=== PATIENT | female | born 1950 | race Caucasian/White ===

== ENCOUNTER 2023-08-30 19:33 | Observation (INO) ==
[2023-08-30 20:23] LABS: Basophils # (auto) 0.08 K/uL (0.00-0.20); Basophils % (auto) 0.9 %; Eosinophils # (auto) 0.25 K/uL (0.00-0.50); Eosinophils % (auto) 2.7 %; Hematocrit (blood only) 42.6 % (37.0-47.0); Hemoglobin 14.6 g/dl (12.0-16.0); Immature Granulocytes # (auto) 0.02 K/uL (0.01-0.20); Immature Granulocytes % (auto) 0.2 %; Lymphocytes # (auto) 3.99 K/uL (1.20-3.40); Lymphocytes % (auto) 42.9 %; Mean Corpuscular Hemoglobin 31.7 pg (25.0-34.0); Mean Corpuscular Hgb Conc 34.3 g/dL (32.0-36.0); Mean Corpuscular Volume 92.4 fL (80.0-100.0); Mean Platelet Volume 10.4 fL (9.4-12.4); Monocytes # (auto) 1.13 K/uL (0.11-0.59); Monocytes % (auto) 12.2 %; Neutrophils # (auto) 3.82 K/uL (1.40-6.50); Neutrophils % (auto) 41.1 %; Platelet Count 380 K/uL (130-400); RDW Coefficient of Variation 13.8 % (11.5-14.5); RDW Standard Deviation 47.2 fL (36.4-46.3); Red Blood Count 4.61 M/uL (4.20-5.40); White Blood Count 9.29 K/ul (4.8-10.8)
[2023-08-30 20:40] LABS: Albumin Globulin Ratio 1.4 (0.9-2); Albumin Level 4.4 gm/dl (3.4-5.0); BUN Creatinine Ratio 36.4 (10-20); Bilirubin,Total 0.4 mg/dl (0.2-1.0); Est GFR (African American) 106.3 ml/min; Est GFR (Non-African American) 91.8 ml/min; Globulin 3.2 gm/dl (2.5-4.0); Potassium 4.2 mmol/L (3.5-5.1); Total Protein 7.6 gm/dl (6.0-8.3)
[2023-08-30] MEDS: OPTIRAY 320 125ml IV ONE (20:58)
--- NOTE | 2023-08-30 21:31 | CT Scan Report ---
Exam(s): CTA HEAD With Contrast IV Amt: 117 ml opti 320 EXAM: CT Angiography Head With Intravenous Contrast CLINICAL HISTORY: Changes in vision. TECHNIQUE: Axial computed tomographic angiography images of the head with intravenous contrast. CTDI is 22.84 mGy and DLP is 427.39 mGy-cm. Automated exposure control was utilized for the study. A dose lowering technique was utilized adhering to the principles of ALARA. MIP reconstructed images were created and reviewed. CONTRAST: Patient received 117 ml opti 320 of IV contrast COMPARISON: No relevant prior studies available. FINDINGS: Limitations: There is mild motion artifact, which mildly degrades image quality on multiple image slices. Right internal carotid artery: No acute findings. Intracranial segment is patent with no significant stenosis. No aneurysm. Right anterior cerebral artery: Unremarkable. No occlusion or significant stenosis. No aneurysm. Right middle cerebral artery: Unremarkable. No occlusion or significant stenosis. No aneurysm. Right posterior cerebral artery: Unremarkable. No occlusion or significant stenosis. No aneurysm. Right vertebral artery: Unremarkable as visualized. Left internal carotid artery: No acute findings. Intracranial segment is patent with no significant stenosis. No aneurysm. Left anterior cerebral artery: Unremarkable. No occlusion or significant stenosis. No aneurysm. Left middle cerebral artery: Unremarkable. No occlusion or significant stenosis. No aneurysm. Left posterior cerebral artery: Unremarkable. No occlusion or significant stenosis. No aneurysm. Left vertebral artery: Unremarkable as visualized. Basilar artery: Unremarkable. No occlusion or significant stenosis. No aneurysm. Brain: No abnormal parenchymal enhancement. IMPRESSION: Negative intracranial CTA examination. Communications: Call Doctor Stroke Electronically signed by: Oziel Rodriguez MD 08/30/23 21:30 PM
--- NOTE | 2023-08-30 21:36 | Emergency Department Note ---
Impression & Plan Ischemic cerebrovascular accident (CVA), Hemianopsia ED Provider Note NAME: DOUGLAS MADSEN AGE: 73 SEX: F : 1950 ARRIVES VIA: Walk-In INFORMANT: Patient, ED PROVIDER(S): Maldonado Antonio DO CHIEF COMPLAINT: strokelike symptoms HPI: the patient is a 73-year-old female who presented to the emergency department for an evaluation of viral-like symptoms. The patient started having symptoms over the weekend. She noticed loss of peripheral vision mostly in her right eye. She was seen recently at her eye doctors for cataract surgery. She did have drops placed in her eye. She noticed when she awoke on Wednesday morning which was the next day that she was having problems seeing out of the right eye. The patient denies having any headaches. She was seen by the eye doctor again today and her eye exam showed no reason for her loss of peripheral vision. It was felt that this could be related to a central process so she was sent to the emergency department for further evaluation. She has no history of atrial fibrillation. She has no history of hypertension or carotid artery disease. ROS: See above HPI for pertinent positives & negatives. A total of 10 systems reviewed and were otherwise negative. PAST MEDICAL HISTORY: See Below PAST SURGICAL HISTORY: See Below FAMILY HISTORY: See Below SOCIAL HISTORY: See Below HOME MEDICATIONS: See Below ALLERGIES: See Below VITALS: See Below PHYSICAL EXAMINATION: GENERAL: Patient is awake alert in no acute distress patient is resting comfortably and showing no signs of anxiety EYES: The conjunctivae are clear. The pupils are round and reactive. EARS, NOSE, MOUTH AND THROAT: The nose is without any evidence of any deformity. NECK: The neck is nontender and supple. RESPIRATORY: Normal respiratory effort is noted there is no evidence of wheezing rhonchi or rales CARDIOVASCULAR: Regular rate and rhythm noted there no murmurs rubs or gallops normal S1 normal S2. GASTROINTESTINAL: The abdomen is soft. Abdomen is nontender. MUSCULOSKELETAL/EXTREMITIES: There is no evidence of gross deformity full range of motion is noted in the hips and shoulders. SKIN: There is no obvious evidence of any rash. There are no petechiae, pallor or cyanosis noted. NEUROLOGIC: Patient is awake alert and oriented x3 strength is symmetric patellar reflexes are 2+ bilaterally. Visual omy were evaluated to direct confrontation. The patient does appear to have some loss of peripheral vision in the right eye. MEDICAL DECISION MAKING: The patient is a 73-year-old female who presented to the emergency department for an evaluation of visual difficulty. The patient's exam appears to be consistent with a central cause for loss of vision especially given that she recently had a visit to her eye doctor and no peripheral cause can be found. The patient was not hypertensive. She was not in atrial fibrillation. She has no history of stroke in the past. She was treated with aspirin in the emergency department. CT appears to be consistent with a subacute left occipital lobe infarct. Given that this is cryptogenic in nature she may require further inpatient management. She may require echocardiogram and carotid Dopplers. She was agreeable to this plan. I [facility] Nursing notes reviewed. Prior medical records reviewed Vital Signs: reviewed and remarkable for no significant abnormalities Differential diagnosis: Conjunctivitis, trauma, corneal abrasion, hyphema, glaucoma, iritis, corneal ulcer, dendrite, CRAO, CRVO, vitreous detachment, retinal detachment, as well as other pathologies. ER treatment provided: See below Diagnostics interpreted by me: ECG: EKG was obtained in the emergency department. My interpretation is normal sinus rhythm at 73 bpm. There is no ectopy. There is no acute ST segment abnormalities noted. No previous tracing was available. Cardiac Monitoring: An order was placed for continuous cardiac monitoring. The monitor shows a rate of 71 bpm with sinus rhythm Laboratory studies: As stated above and show below. Imaging studies: See below. Radiographic imaging was reviewed by myself Consultation(s): I discussed this case with Dr. Weir who [facility]. Past Med/Surg History Problem List (Updated 08/30/23 @ 21:36 by Maldonado Antonio DO) Hemianopsia (Acute) Ischemic cerebrovascular accident (CVA) (Acute) Pancreatic lesion Multiple. S/p pancreatectomy for precancerous lesions in 2019. Managed by [facility] Hyperlipidemia Hypothyroidism Surgical History (Updated 01/15/22 @ 14:48 by JANNA Santana) History of pancreatectomy DISTAL PER PT IN 2019, INCLUDED THE SPLEEN PER PT. S/P gastric sleeve procedure SEP 2013 S/P partial hysterectomy 1993 S/P tonsillectomy and adenoidectomy S/P wisdom tooth extraction Family History (Updated 01/15/22 @ 14:53 by JANNA Santana) Aunt Colorectal cancer Uncle Colorectal cancer ALS (amyotrophic lateral sclerosis) Grandmother Myocardial infarction Father Pancreatic cancer Aunt Pancreatic cancer Grandfather (Paternal) Pancreatic cancer Grandmother (Paternal) Stroke Grandmother (Maternal) ALS (amyotrophic lateral sclerosis) Denies family history of Ovarian cancer Prostate cancer Breast cancer Hypertension Social History (Updated 01/15/22 @ 14:56 by JANNA Santana) Smoking Status: Never smoker Tobacco Type: Cigarettes Age Started Using Tobacco: 17; Age Quit Using Tobacco: 18; Cigarettes Per Day: A COUPLE A DAY; Second Hand Exposure: Yes; Do You Dip or Chew Tobacco: No; Hx Alcohol Use: Yes Alcohol type: wine Alcohol Intake Frequency: 2-3 x/Week Hx Substance Use: No Preferred Language: Croatian Communication Ability: Effective Visual Impairment: No Limitations Hearing Ability: Use of Hearing Aid marital status: Current Living Situation: Spouse current occupational status: retired Feels Safe at Home: Yes Childhood Exposure to Second-Hand Smoke: Yes Diet: other Diet Comment: JENA MCINTOSH Dental Care, Regularly: Yes Physical Activity Frequency: 3-4 Times per Week Seatbelt Use: always Sunscreen Use: Yes Allergies Allergies Allergy/AdvReac Type Severity Reaction Status Date / Time diazepam [From Valium] AdvReac Severe Shakiness Verified 07/15/22 10:34 adhesive tape AdvReac Unknown Rash Verified 07/15/22 10:34 pseudoephedrine AdvReac Unknown Insomnia Verified 07/15/22 10:34 [From Sudafed] Home Meds Home Medications Medication Instructions Recorded Confirmed Saccharomyces boulardii 250 mg 250 mg PO DAILY 01/15/22 07/15/22 capsule (Daily Probiotic (S. boulardii)) meloxicam 7.5 mg tablet 7.5 mg PO DAILY PRN 01/15/22 07/15/22 Previous Rx's Medication Instructions Recorded Synthroid 137 mcg tablet 137 mcg PO DAILY #90 tabs 06/19/22 (levothyroxine) Synthroid 150 mcg tablet 150 mcg PO DAILY #45 tabs 06/19/22 (levothyroxine) omeprazole 20 mg tablet,delayed 20 mg PO DAILY #30 tabs 07/15/22 release Results & Data (ED) Vital Signs Vital Signs - 24 hr 08/30/23 19:37 08/30/23 21:15 08/30/23 21:25 Temperature 36.6 C Temperature Source Temporal Artery Scan Pulse Rate 74 71 Pulse Rate [Apical] 72 Respiratory Rate 16 12 Respiratory Effort / Characteristics Non-Labored Non-Labored Spontaneous Respiratory Depth Normal Normal Respiratory Pattern Regular Regular Blood Pressure 159/95 H Blood Pressure [Right Arm] 138/80 Blood Pressure Mean 116 Blood Pressure Mean [Right Arm] 99 Pulse Oximetry 98 97 Oxygen Delivery Method Room Air Room Air Sepsis Recent Fever Within 48 Hours No Sepsis New/Unexplained Change in Mental Status N/A Sepsis Action Taken by Nursing No Action Required Home Medications Current Medication List: was personally reviewed by me Laboratory Data Attestation: I reviewed the patient's lab results. 08/30/23 19:47 08/30/23 19:47 Lab Results 08/30/23 Range/Units 19:47 WBC 9.29 (4.8-10.8) K/ul RBC 4.61 (4.20-5.40) M/uL Hgb 14.6 (12.0-16.0) g/dl Hct 42.6 (37.0-47.0) % MCV 92.4 (80.0-100.0) fL MCH 31.7 (25.0-34.0) pg MCHC 34.3 (32.0-36.0) g/dL RDW Std Deviation 47.2 H (36.4-46.3) fL RDW Coeff of Sheila 13.8 (11.5-14.5) % Plt Count 380 (130-400) K/uL MPV 10.4 (9.4-12.4) fL Immature Gran % (Auto) 0.2 % Neut % (Auto) 41.1 % Lymph % (Auto) 42.9 % [place] % (Auto) 12.2 % Eos % (Auto) 2.7 % Baso % (Auto) 0.9 % Neut # (Auto) 3.82 (1.40-6.50) K/uL Lymph # (Auto) 3.99 H (1.20-3.40) K/uL [place] # (Auto) 1.13 H (0.11-0.59) K/uL Eos # (Auto) 0.25 (0.00-0.50) K/uL Baso # (Auto) 0.08 (0.00-0.20) K/uL Immature Gran # (Auto) 0.02 (0.01-0.20) K/uL Sodium 140 (136-145) mmol/L Potassium 4.2 (3.5-5.1) mmol/L Chloride 106 (98-107) mmol/L Carbon Dioxide 28 (21-32) mmol/L Anion Gap 6 (3-11) BUN 20 (6-23) mg/dl Creatinine 0.55 L (0.6-1.2) mg/dl Est Cr Clr Drug Dosing 90.0 ml/min Est GFR ( Amer) 106.3 ml/min Est GFR (Non-Af Amer) 91.8 ml/min BUN/Creatinine Ratio 36.4 H (10-20) Glucose 134 H (70-99(Fasting)) mg/dl Calcium 10.0 (8.6-10.3) mg/dl Total Bilirubin 0.4 (0.2-1.0) mg/dl AST 25 (13-39) U/L ALT 27 (7-52) U/L Alkaline Phosphatase 86 (34-104) U/L Total Protein 7.6 (6.0-8.3) gm/dl Albumin 4.4 (3.4-5.0) gm/dl Globulin 3.2 (2.5-4.0) gm/dl Albumin/Globulin Ratio 1.4 (0.9-2) Administered Medications Discontinued Medications Ioversol (Optiray 320 125ml) 117 ml IV ONCE ONE Stop: 08/30/23 20:59 Last Admin: 08/30/23 20:58 Dose: 117 ml Documented By: JOÃO Imaging Data Attestation: I personally reviewed and interpreted this imaging study as follows: My Impression: CT of the brain was obtained in the emergency department. My interpretation is subacute infarct in the left occipital lobe, there is no acute bleeding, final report below. Radiologist's Impression: Head CT 08/30/23 20:42 CR Exam(s): CT HEAD Without Contrast EXAM: CT Head Without Intravenous Contrast CLINICAL HISTORY: Changes in vision. TECHNIQUE: Axial computed tomography images of the head/brain without intravenous contrast. CTDI is 53.29 mGy and DLP is 899.15 mGy-cm. Automated exposure control was utilized for the study. A dose lowering technique was utilized adhering to the principles of ALARA. COMPARISON: No relevant prior studies available. FINDINGS: Brain: No intracranial hemorrhage. Asymmetric hypodense appearance of the posterior medial left occipital lobe with loss of the chaney-white matter differentiation. No significant mass-effect. Ventricles: Unremarkable. No ventriculomegaly. Bones/joints: Unremarkable. No acute fracture. Soft tissues: Unremarkable. Sinuses: Unremarkable as visualized. No acute sinusitis. Mastoid air cells: Unremarkable as visualized. No mastoid effusion. IMPRESSION: Asymmetric hypodense appearance of the posterior medial left occipital lobe with loss of the chaney-white matter differentiation. Findings are consistent with evolving ischemic changes in this region. Recommend MR with diffusion for further analysis, as clinically indicated. Communications: Call Doctor Stroke Electronically signed by: Oziel Rodriguez MD 08/30/23 21:33 PM Head CTA 08/30/23 20:42 CR Exam(s): CTA HEAD With Contrast IV Amt: 117 ml opti 320 EXAM: CT Angiography Head With Intravenous Contrast CLINICAL HISTORY: Changes in vision. TECHNIQUE: Axial computed tomographic angiography images of the head with intravenous contrast. CTDI is 22.84 mGy and DLP is 427.39 mGy-cm. Automated exposure control was utilized for the study. A dose lowering technique was utilized adhering to the principles of ALARA. MIP reconstructed images were created and reviewed. CONTRAST: Patient received 117 ml opti 320 of IV contrast COMPARISON: No relevant prior studies available. FINDINGS: Limitations: There is mild motion artifact, which mildly degrades image quality on multiple image slices. Right internal carotid artery: No acute findings. Intracranial segment is patent with no significant stenosis. No aneurysm. Right anterior cerebral artery: Unremarkable. No occlusion or significant stenosis. No aneurysm. Right middle cerebral artery: Unremarkable. No occlusion or significant stenosis. No aneurysm. Right posterior cerebral artery: Unremarkable. No occlusion or significant stenosis. No aneurysm. Right vertebral artery: Unremarkable as visualized. Left internal carotid artery: No acute findings. Intracranial segment is patent with no significant stenosis. No aneurysm. Left anterior cerebral artery: Unremarkable. No occlusion or significant stenosis. No aneurysm. Left middle cerebral artery: Unremarkable. No occlusion or significant stenosis. No aneurysm. Left posterior cerebral artery: Unremarkable. No occlusion or significant stenosis. No aneurysm. Left vertebral artery: Unremarkable as visualized. Basilar artery: Unremarkable. No occlusion or significant stenosis. No aneurysm. Brain: No abnormal parenchymal enhancement. IMPRESSION: Negative intracranial CTA examination. Communications: Call Doctor Stroke Electronically signed by: Oziel Rodriguez MD 08/30/23 21:30 PM Neck CTA 08/30/23 20:42 CR Exam(s): CTA NECK With Contrast IV Amt: 117 ml opti 320 EXAM: CT Angiography Neck With Intravenous Contrast CLINICAL HISTORY: Changes in vision. TECHNIQUE: Routine carotid CT angiography protocol was performed with intravenous contrast. NASCET criteria using the distal ICAs for comparison were used for evaluation of stenoses. CTDI is 23 mGy and DLP is 428 mGy-cm. Automated exposure control was utilized for the study. A dose lowering technique was utilized adhering to the principles of ALARA. MIP reconstructed images were created and reviewed. CONTRAST: Patient received 117 ml opti 320 of IV contrast COMPARISON: None. FINDINGS: VASCULATURE: Right common carotid artery: Unremarkable. No occlusion or significant stenosis. No dissection. Right internal carotid artery: Unremarkable. Extracranial segment is patent with no occlusion or significant stenosis. No dissection. Right external carotid artery: Unremarkable. No occlusion. Right vertebral artery: Unremarkable. No occlusion or significant stenosis. No dissection. Left common carotid artery: Unremarkable. No occlusion or significant stenosis. No dissection. Left internal carotid artery: Unremarkable. Extracranial segment is patent with no occlusion or significant stenosis. No dissection. Left external carotid artery: Unremarkable. No occlusion. Left vertebral artery: Unremarkable. No occlusion or significant stenosis. No dissection. Brachiocephalic and subclavian arteries: The proximal great vessels demonstrate a type II normal branching pattern. The proximal great vessels are tortuous without significant ostial stenosis, dissection or occlusion. Aorta: The aortic arch is patent without dissection or aneurysm. NECK: Bones/joints: Multilevel degenerative changes of the cervical spine. No acute fracture. Soft tissues: Unremarkable. Lung apices: Heterogeneous attenuation of the lungs. Subcentimeter grouped irregular and somewhat nodular changes noted involving the medial aspect of the right upper lobe lung apex. CAROTID STENOSIS REFERENCE USING NASCET CRITERIA: % ICA stenosis = (1 - narrowest ICA diameter/diameter of distal cervical ICA) x 100. Mild - <50% stenosis. Moderate - 50-69% stenosis. Severe - 70-94% stenosis. Near occlusion - 95-99% stenosis. Occluded - 100% stenosis. IMPRESSION: 1. Negative cervical CTA examination. 2. Subcentimeter grouped irregular and somewhat nodular changes noted involving the medial aspect of the right upper lobe lung apex. This may represent subsegmental atelectasis. Consider nonemergent diagnostic evaluation, when clinically indicated. Communications: Call Doctor Stroke Electronically signed by: Oziel Rodriguez MD 08/30/23 21:37 PM Discharge Plan Visit Data Chief Complaint: Eye Problems Stated Complaint: VISION LOSS, POSSIBLE MINI STROKE ED Provider: Maldonado Antonio Discharge Problem: Ischemic cerebrovascular accident (CVA), Hemianopsia Patient Disposition: Being Evaluated by Hospitalist Forms Stand Alone Forms: My [facility] Prescriptions Prescriptions: No Action levothyroxine [Synthroid] 150 mcg tablet 150 mcg PO DAILY Qty: 45 3RF Rx Instructions: Alternate with Synthroid 137 mcg every other day. levothyroxine [Synthroid] 137 mcg tablet 137 mcg PO DAILY Qty: 90 1RF Rx Instructions: Alternate with Synthroid 150 mcg every other day. meloxicam 7.5 mg tablet 7.5 mg PO DAILY PRN Patient Comments: TAKES TWICE WEEKLY AT THIS TIME FOR THE MOST PART. Saccharomyces boulardii [Daily Probiotic (S. boulardii)] 250 mg capsule 250 mg PO DAILY omeprazole 20 mg tablet,delayed release (DR/EC) 20 mg PO DAILY Qty: 30 2RF Referrals Referrals: Janny [Other]
[2023-08-30] MEDS: ASPIRIN CHEW 324 MG PO STA (21:56)
--- NOTE | 2023-08-30 23:00 | History & Physical Report ---
Date of Service August 30, 2023 Assessment & Plan (1) CVA (cerebral vascular accident): Plan: 73-year-old female with past medical history significant for mixed hyperlipidemia, IPMN, prediabetes, postablative hypothyroidism, GERD, s/p gastric bypass, serrated polyposis syndrome, polymyalgia rheumatica, osteoarthritis, history of splenectomy presents with right eye peripheral vision loss since last Wednesday and CAT scan showing possible stroke. Patient saw eye doctor on Wednesday for her cataracts and there is a plan for surgery in November. She was given eyedrops. On Wednesday morning she woke up and she found could not see on the periphery of the right eye. Also later one spot in the left eye medial side could not see.. As was not getting better she went to eye doctor today and was examined and was told possible central cause and advised to go to her doctor as soon as possible.Family doctor called her and told her to come to the ER. She thinks right eye peripheral vision is slightly better but Not completely resolved. Denies any headache. No dizziness. Has some runny nose from allergies. No sore throat or cough. No fevers. No headaches. No difficulty swallowing. No chest pain or shortness of breath. No nausea , no abdominal pain. Normal bowel and bladder movements. No blood in the stools. No hematuria. She states in the summer she develops ankle swellings. Currently resting comfortably and hemodynamically stable. Acute CVA comes with peripheral vision loss in the right eye lateral aspect since last Wednesday morning and also one spot in medial aspect of the left eye. CAT head scan showing hypodense appearance of the posterior medial left occipital lobe, findings consistent with evolving issue change in this region and MRI scan is recommended CTA head and neck unremarkable start aspirin. High-dose statin. Stroke protocol. Neurochecks. Will follow MRI head and echo . Speech evaluation PT OT evaluation. Neuroconsult in a.m. for further recommendations. Telemetry monitoring. Hypothyroidism on Synthyroid will follow TSH prediabetes will follow HbA1c levels history of gastric bypass surgery GERD on omeprazole as needed hyperlipidemia will follow lipid profile History of splenectomy. DVT prophylaxis SCDs for now disposition telemetry full code. History of Present Illness Chief Complaint: Peripheral vision loss in right eye. Primary Care Provider: Gemini Dorantes MD 73-year-old female with past medical history significant for mixed hyperlipidemia, IPMN, prediabetes, postablative hypothyroidism, GERD, s/p gastric bypass, serrated polyposis syndrome, polymyalgia rheumatica, osteoarthritis, history of splenectomy presents with right eye peripheral vision loss since last Wednesday and CAT scan showing possible stroke. Patient saw eye doctor on Wednesday for her cataracts and there is a plan for surgery in November. She was given eyedrops. On Wednesday morning she woke up and she found could not see on the periphery of the right eye. Also later one spot in the left eye medial side could not see.. As was not getting better she went to eye doctor today and was examined and was told possible central cause and advised to go to her doctor as soon as possible.Family doctor called her and told her to come to the ER. She thinks right eye peripheral vision is slightly better but Not completely resolved. Denies any headache. No dizziness. Has some runny nose from allergies. No sore throat or cough. No fevers. No headaches. No difficulty swallowing. No chest pain or shortness of breath. No nausea , no abdominal pain. Normal bowel and bladder movements. No blood in the stools. No hematuria. She states in the summer she develops ankle swellings. Currently resting comfortably and hemodynamically stable. Past medical history. As mentioned above past surgical history. Bilateral carpal tunnel surgery. Gastric revision for obesity. Laparoscopic splenectomy. Ligation of oviduct. Partial hysterectomy. Partial removal of pancreas. Tonsillectomy. Social history. . Former smoker. Alcohol occasional. No drug use. Family history. Paternal grandfather had stomach cancer. Paternal aunt had colon cancer. Paternal uncle had colon cancer. Paternal aunt had pancreatic cancer. Father had pancreatic cancer. Mother had pulmonary embolism likely from broken hip. Son has cyclic vomiting syndrome. Allergies Allergy/AdvReac Type Severity Reaction Status Date / Time diazepam [From Valium] AdvReac Severe Shakiness Verified 08/30/23 22:53 adhesive tape AdvReac Unknown Rash Verified 08/30/23 22:53 pseudoephedrine AdvReac Unknown Insomnia Verified 08/30/23 22:53 [From Sudafed] Home Medications Medication Instructions Recorded Confirmed Type levothyroxine 137 mcg tablet 137 mcg PO DAILY 08/30/23 08/30/23 History (Synthroid) meloxicam 7.5 mg tablet 7.5 mg PO DAILY PRN Severe Pain 08/30/23 08/30/23 History (Scale Score 7-10) omeprazole 20 mg capsule,delayed 20 mg PO DAILY PRN Heartburn 08/30/23 08/30/23 History release Past Med/Surg History Problem List (Updated 08/30/23 @ 22:53 by Thom Weir MD) CVA (cerebral vascular accident) Hemianopsia (Acute) Ischemic cerebrovascular accident (CVA) (Acute) Pancreatic lesion Multiple. S/p pancreatectomy for precancerous lesions in 2019. Managed by [facility] Hyperlipidemia Hypothyroidism Surgical History (Updated 01/15/22 @ 14:48 by JANNA Santana) History of pancreatectomy DISTAL PER PT IN 2019, INCLUDED THE SPLEEN PER PT. S/P gastric sleeve procedure SEP 2013 S/P partial hysterectomy 1993 S/P tonsillectomy and adenoidectomy S/P wisdom tooth extraction Family History (Updated 01/15/22 @ 14:53 by JANNA Santana) Aunt Colorectal cancer Uncle Colorectal cancer ALS (amyotrophic lateral sclerosis) Grandmother Myocardial infarction Father Pancreatic cancer Aunt Pancreatic cancer Grandfather (Paternal) Pancreatic cancer Grandmother (Paternal) Stroke Grandmother (Maternal) ALS (amyotrophic lateral sclerosis) Denies family history of Ovarian cancer Prostate cancer Breast cancer Hypertension Social History (Updated 01/15/22 @ 14:56 by JANNA Santana) Smoking Status: Never smoker Tobacco Type: Cigarettes Age Started Using Tobacco: 17; Age Quit Using Tobacco: 18; Cigarettes Per Day: A COUPLE A DAY; Second Hand Exposure: Yes; Do You Dip or Chew Tobacco: No; Hx Alcohol Use: Yes Alcohol type: beer and wine Alcohol Intake Frequency: 2-3 x/Week Hx Substance Use: No Preferred Language: Mauritanian Communication Ability: Effective Visual Impairment: No Limitations Hearing Ability: Use of Hearing Aid Entry Level Truck Driver Required: No Beliefs That Will Affect Care: None marital status: Current Living Situation: Spouse Current Living Situation Comment: with current occupational status: retired Other Information That Helps Us Care for You: No Feels Safe at Home: Yes Safety Concerns: Feels Safe At This Time Childhood Exposure to Second-Hand Smoke: Yes Diet: other Diet Comment: MEDITTERANIAN DIET Dental Care, Regularly: Yes Physical Activity Frequency: 3-4 Times per Week Seatbelt Use: always Sunscreen Use: Yes Assistive Devices: None Review of Systems Review of Systems: All systems reviewed & are unremarkable except as noted in HPI & below Physical Exam Physical Exam: General- Not in distress Head- atraumatic Eyes- PERRL, EOMI, right eye vision loss on lateral aspect. ENT- oropharynx clear Neck- supple, no JVD. Lungs- clear to auscultation no wheezing or crackles. Heart- regular rate and rhythm; no murmur, no gallop. Abdomen- normal bowel sounds, soft, nontender, no distension. Extremities- trace pretibial edema, no erythema seen Neuro- alert, oriented PERRL, EOMI; no facial palsy; no dysarthria; moves extremities. Results & Data Results & Data Vital Signs (Past 12 Hours) Vital Signs Temp Pulse Pulse Resp BP BP Pulse Ox 08/30/23 21:25 71 08/30/23 21:15 72 12 138/80 97 08/30/23 19:37 36.6 C 74 16 159/95 H 98 O2 Del Method 08/30/23 21:25 08/30/23 21:15 Room Air 08/30/23 19:37 Room Air Diagnostic Findings Laboratory Results WBC 9.29 K/ul (4.8-10.8) 08/30/23 19:47 RBC 4.61 M/uL (4.20-5.40) 08/30/23 19:47 Hgb 14.6 g/dl (12.0-16.0) 08/30/23 19:47 Hct 42.6 % (37.0-47.0) 08/30/23 19:47 MCV 92.4 fL (80.0-100.0) 08/30/23 19:47 MCH 31.7 pg (25.0-34.0) 08/30/23 19:47 MCHC 34.3 g/dL (32.0-36.0) 08/30/23 19:47 RDW Std Deviation 47.2 fL (36.4-46.3) H 08/30/23 19:47 RDW Coeff of Sheila 13.8 % (11.5-14.5) 08/30/23 19:47 Plt Count 380 K/uL (130-400) 08/30/23 19:47 MPV 10.4 fL (9.4-12.4) 08/30/23 19:47 Immature Gran % (Auto) 0.2 % 08/30/23 19:47 Neut % (Auto) 41.1 % 08/30/23 19:47 Lymph % (Auto) 42.9 % 08/30/23 19:47 [place] % (Auto) 12.2 % 08/30/23 19:47 Eos % (Auto) 2.7 % 08/30/23 19:47 Baso % (Auto) 0.9 % 08/30/23 19:47 Neut # (Auto) 3.82 K/uL (1.40-6.50) 08/30/23 19:47 Lymph # (Auto) 3.99 K/uL (1.20-3.40) H 08/30/23 19:47 [place] # (Auto) 1.13 K/uL (0.11-0.59) H 08/30/23 19:47 Eos # (Auto) 0.25 K/uL (0.00-0.50) 08/30/23 19:47 Baso # (Auto) 0.08 K/uL (0.00-0.20) 08/30/23 19:47 Immature Gran # (Auto) 0.02 K/uL (0.01-0.20) 08/30/23 19:47 Sodium 140 mmol/L (136-145) 08/30/23 19:47 Potassium 4.2 mmol/L (3.5-5.1) 08/30/23 19:47 Chloride 106 mmol/L (98-107) 08/30/23 19:47 Carbon Dioxide 28 mmol/L (21-32) 08/30/23 19:47 Anion Gap 6 (3-11) 08/30/23 19:47 BUN 20 mg/dl (6-23) 08/30/23 19:47 Creatinine 0.55 mg/dl (0.6-1.2) L 08/30/23 19:47 Est Cr Clr Drug Dosing 90.0 ml/min 08/30/23 19:47 Est GFR ( Amer) 106.3 ml/min 08/30/23 19:47 Est GFR (Non-Af Amer) 91.8 ml/min 08/30/23 19:47 BUN/Creatinine Ratio 36.4 (10-20) H 08/30/23 19:47 Glucose 134 mg/dl (70-99(Fasting)) H 08/30/23 19:47 Calcium 10.0 mg/dl (8.6-10.3) 08/30/23 19:47 Total Bilirubin 0.4 mg/dl (0.2-1.0) 08/30/23 19:47 AST 25 U/L (13-39) 08/30/23 19:47 ALT 27 U/L (7-52) 08/30/23 19:47 Alkaline Phosphatase 86 U/L (34-104) 08/30/23 19:47 Total Protein 7.6 gm/dl (6.0-8.3) 08/30/23 19:47 Albumin 4.4 gm/dl (3.4-5.0) 08/30/23 19:47 Globulin 3.2 gm/dl (2.5-4.0) 08/30/23 19:47 Albumin/Globulin Ratio 1.4 (0.9-2) 08/30/23 19:[address] 08/30/23 20:42 CR Exam(s): CT HEAD Without Contrast EXAM: CT Head Without Intravenous Contrast CLINICAL HISTORY: Changes in vision. TECHNIQUE: Axial computed tomography images of the head/brain without intravenous contrast. CTDI is 53.29 mGy and DLP is 899.15 mGy-cm. Automated exposure control was utilized for the study. A dose lowering technique was utilized adhering to the principles of ALARA. COMPARISON: No relevant prior studies available. FINDINGS: Brain: No intracranial hemorrhage. Asymmetric hypodense appearance of the posterior medial left occipital lobe with loss of the chaney-white matter differentiation. No significant mass-effect. Ventricles: Unremarkable. No ventriculomegaly. Bones/joints: Unremarkable. No acute fracture. Soft tissues: Unremarkable. Sinuses: Unremarkable as visualized. No acute sinusitis. Mastoid air cells: Unremarkable as visualized. No mastoid effusion. IMPRESSION: Asymmetric hypodense appearance of the posterior medial left occipital lobe with loss of the chaney-white matter differentiation. Findings are consistent with evolving ischemic changes in this region. Recommend MR with diffusion for further analysis, as clinically indicated. Communications: Call Doctor Stroke Electronically signed by: Oziel Rodriguez MD 08/30/23 21:33 PM Head CTA 08/30/23 20:42 CR Exam(s): CTA HEAD With Contrast IV Amt: 117 ml opti 320 EXAM: CT Angiography Head With Intravenous Contrast CLINICAL HISTORY: Changes in vision. TECHNIQUE: Axial computed tomographic angiography images of the head with intravenous contrast. CTDI is 22.84 mGy and DLP is 427.39 mGy-cm. Automated exposure control was utilized for the study. A dose lowering technique was utilized adhering to the principles of ALARA. MIP reconstructed images were created and reviewed. CONTRAST: Patient received 117 ml opti 320 of IV contrast COMPARISON: No relevant prior studies available. FINDINGS: Limitations: There is mild motion artifact, which mildly degrades image quality on multiple image slices. Right internal carotid artery: No acute findings. Intracranial segment is patent with no significant stenosis. No aneurysm. Right anterior cerebral artery: Unremarkable. No occlusion or significant stenosis. No aneurysm. Right middle cerebral artery: Unremarkable. No occlusion or significant stenosis. No aneurysm. Right posterior cerebral artery: Unremarkable. No occlusion or significant stenosis. No aneurysm. Right vertebral artery: Unremarkable as visualized. Left internal carotid artery: No acute findings. Intracranial segment is patent with no significant stenosis. No aneurysm. Left anterior cerebral artery: Unremarkable. No occlusion or significant stenosis. No aneurysm. Left middle cerebral artery: Unremarkable. No occlusion or significant stenosis. No aneurysm. Left posterior cerebral artery: Unremarkable. No occlusion or significant stenosis. No aneurysm. Left vertebral artery: Unremarkable as visualized. Basilar artery: Unremarkable. No occlusion or significant stenosis. No aneurysm. Brain: No abnormal parenchymal enhancement. IMPRESSION: Negative intracranial CTA examination. Communications: Call Doctor Stroke Electronically signed by: Oziel Rodriguez MD 08/30/23 21:30 PM Neck CTA 08/30/23 20:42 CR Exam(s): CTA NECK With Contrast IV Amt: 117 ml opti 320 EXAM: CT Angiography Neck With Intravenous Contrast CLINICAL HISTORY: Changes in vision. TECHNIQUE: Routine carotid CT angiography protocol was performed with intravenous contrast. NASCET criteria using the distal ICAs for comparison were used for evaluation of stenoses. CTDI is 23 mGy and DLP is 428 mGy-cm. Automated exposure control was utilized for the study. A dose lowering technique was utilized adhering to the principles of ALARA. MIP reconstructed images were created and reviewed. CONTRAST: Patient received 117 ml opti 320 of IV contrast COMPARISON: None. FINDINGS: VASCULATURE: Right common carotid artery: Unremarkable. No occlusion or significant stenosis. No dissection. Right internal carotid artery: Unremarkable. Extracranial segment is patent with no occlusion or significant stenosis. No dissection. Right external carotid artery: Unremarkable. No occlusion. Right vertebral artery: Unremarkable. No occlusion or significant stenosis. No dissection. Left common carotid artery: Unremarkable. No occlusion or significant stenosis. No dissection. Left internal carotid artery: Unremarkable. Extracranial segment is patent with no occlusion or significant stenosis. No dissection. Left external carotid artery: Unremarkable. No occlusion. Left vertebral artery: Unremarkable. No occlusion or significant stenosis. No dissection. Brachiocephalic and subclavian arteries: The proximal great vessels demonstrate a type II normal branching pattern. The proximal great vessels are tortuous without significant ostial stenosis, dissection or occlusion. Aorta: The aortic arch is patent without dissection or aneurysm. NECK: Bones/joints: Multilevel degenerative changes of the cervical spine. No acute fracture. Soft tissues: Unremarkable. Lung apices: Heterogeneous attenuation of the lungs. Subcentimeter grouped irregular and somewhat nodular changes noted involving the medial aspect of the right upper lobe lung apex. CAROTID STENOSIS REFERENCE USING NASCET CRITERIA: % ICA stenosis = (1 - narrowest ICA diameter/diameter of distal cervical ICA) x 100. Mild - <50% stenosis. Moderate - 50-69% stenosis. Severe - 70-94% stenosis. Near occlusion - 95-99% stenosis. Occluded - 100% stenosis. IMPRESSION: 1. Negative cervical CTA examination. 2. Subcentimeter grouped irregular and somewhat nodular changes noted involving the medial aspect of the right upper lobe lung apex. This may represent subsegmental atelectasis. Consider nonemergent diagnostic evaluation, when clinically indicated. Communications: Call Doctor Stroke Electronically signed by: Oziel Rodriguez MD 08/30/23 21:37 PM ECG Additional Comments: ECG. Normal sinus rhythm rate of 73. QTc 439. Code Status & VTE Plan VTE Prophylaxis Plan VTE Prophylaxis will be ordered: Yes
[2023-08-30] MEDS ORDERED: ACETAMINOPHEN 325 MG TAB PO PRN (23:45)
[2023-08-30] MEDS ORDERED: NITROGLYCERIN SL 0.4 MG/TAB TAB SL PRN (23:45)
[2023-08-30] MEDS ORDERED: PANTOprazole 40 MG TAB PO PRN (23:45)
[2023-08-30] MEDS ORDERED: POLYETHYLENE (MIRALAX) 17 GM PACK PO PRN (23:45)
[2023-08-30] MEDS ORDERED: PHARMACIST DISCHARGE MED REC CONSULT PRN (23:45)
[2023-08-31] MEDS: GADOBUTROL 65ML VIAL IV ONE (00:50)
--- NOTE | 2023-08-31 03:27 | Magnetic Resonance Report ---
Exam(s): MRI HEAD W/WO Contrast IV Amt: 8.5cc gadavist EXAM: MR Head Without and With Intravenous Contrast CLINICAL HISTORY: Reason for exam: cva. TECHNIQUE: Magnetic resonance images of the head/brain without and with intravenous contrast in multiple planes. CONTRAST: Patient received 8.5cc gadavist of IV contrast COMPARISON: Comparison made to prior head CT from same day. FINDINGS: Brain: There is an acute ischemic injury of the left occipital lobe with extensive vasogenic edema without evidence of hemorrhagic transformation. There is a remote ischemic injury of the right parietal lobe with encephalomalacia and gliosis. Mild nonspecific white matter changes. The flow voids at the base of the brain are intact. No mass. No hemorrhage. The dural venous sinuses are patent. There is a small developmental venous anomaly in the left parietal lobe. Ventricles: Unremarkable. No ventriculomegaly. Bones/joints: Hyperostosis frontalis interna. No acute fracture. Sinuses: Unremarkable as visualized. No acute sinusitis. Mastoid air cells: Unremarkable as visualized. No mastoid effusion. Orbits: Unremarkable as visualized. IMPRESSION: Acute ischemic injury of the left occipital lobe without evidence of hemorrhagic transformation. Electronically signed by: Clair Norman MD 08/31/23 03:26 AM
[2023-08-31] MEDS: LEVOTHYROXINE SODIUM 137 MCG TABLET PO SCH (05:53)
[2023-08-31] MEDS: SODIUM CHLORIDE 0.9% 1,000 ML IV SCH (05:53)
[2023-08-31 05:59] LABS: Basophils # (auto) 0.05 K/uL (0.00-0.20); Basophils % (auto) 0.6 %; Eosinophils # (auto) 0.36 K/uL (0.00-0.50); Eosinophils % (auto) 4.6 %; Hemoglobin 13.6 g/dl (12.0-16.0); Immature Granulocytes # (auto) 0.02 K/uL (0.01-0.20); Immature Granulocytes % (auto) 0.3 %; Lymphocytes # (auto) 3.25 K/uL (1.20-3.40); Lymphocytes % (auto) 41.2 %; Mean Corpuscular Hemoglobin 31.6 pg (25.0-34.0); Mean Corpuscular Volume 92.8 fL (80.0-100.0); Mean Platelet Volume 10.5 fL (9.4-12.4); Monocytes # (auto) 1.07 K/uL (0.11-0.59); Monocytes % (auto) 13.6 %; Neutrophils # (auto) 3.14 K/uL (1.40-6.50); Neutrophils % (auto) 39.7 %; Platelet Count 352 K/uL (130-400); RDW Coefficient of Variation 13.7 % (11.5-14.5); RDW Standard Deviation 47.2 fL (36.4-46.3); Red Blood Count 4.31 M/uL (4.20-5.40); White Blood Count 7.89 K/ul (4.8-10.8)
[2023-08-31 06:11] LABS: Calcium 8.9 mg/dl (8.6-10.3); Potassium 4.2 mmol/L (3.5-5.1)
[2023-08-31 06:19] LABS: BUN Creatinine Ratio 36.5 (10-20); Chol HDL Ratio 3.3 (0-5); Creatinine Clr Calc Pharmacy 95.8 ml/min; Est GFR (African American) 108.3 ml/min; Est GFR (Non-African American) 93.5 ml/min
[2023-08-31 06:57] LABS: Thyroid Stimulating Hormone 2.6 uIu/ml (0.300-4.500)
[2023-08-31 08:00] LABS: Estimated Average Glucose 114 mg/dl; Hemoglobin A1C 5.6 % (4.5-5.6)
[2023-08-31 08:54] LABS: Magnesium 1.8 mg/dl (1.7-2.4)
--- NOTE | 2023-08-31 08:55 | Hospitalist Progress Note ---
Date of Service August 31, 2023 Assessment & Plan (1) CVA (cerebral vascular accident): Plan: 73 yo F with mixed hyperlipidemia, IPMN, prediabetes, postablative hypothyroidism, GERD, s/p gastric bypass, serrated polyposis syndrome, polymyalgia rheumatica, osteoarthritis, history of splenectomy presents with right eye peripheral vision loss since last Wednesday and CAT scan showing possible stroke. Patient saw eye doctor on Wednesday for her cataracts and there is a plan for surgery in November. She was given eyedrops. On Wednesday morning she woke up and she found could not see on the periphery of the right eye. Also later one spot in the left eye medial side could not see.. As was not getting better she went to eye doctor today and was examined and was told possible central cause and advised to go to her doctor as soon as possible.Family doctor called her and told her to come to the ER. She thinks right eye peripheral vision is slightly better but Not completely resolved. Denies any headache. No dizziness. Has some runny nose from allergies. No sore throat or cough. No fevers. No headaches. No difficulty swallowing. No chest pain or shortness of breath. No nausea , no abdominal pain. Normal bowel and bladder movements. No blood in the stools. No hematuria. She states in the summer she develops ankle swellings. Currently resting comfortably and hemodynamically stable. Acute CVA comes with peripheral vision loss in the right eye lateral aspect since last Wednesday morning and also one spot in medial aspect of the left eye. CAT head scan showing hypodense appearance of the posterior medial left occipital lobe, findings consistent with evolving issue change in this region and MRI scan is recommended CTA head and neck unremarkable start aspirin. High-dose statin. Stroke protocol. Neurochecks. Follow MRI head and echo MRI brain - There is an acute ischemic injury of the left occipital lobe with extensive vasogenic edema without evidence of hemorrhagic transformation. Echo -LVEF 55 to 60%. Borderline concentric LVH. mild mitral regurg. mild tricuspid regurg. estimated systolic pulmonary pressure is 38 mmHg. ascending aorta is mildly enlarged, 4 cm Speech evaluation PT OT evaluation. Telemetry monitoring. Neurology consulted and discussed with - continue ASA and statin - outpatient cardiac monitoring - outpatient ophthalmology follow up, no driving until assessment - goal normotension Hypothyroidism on Synthroid current TSH 2.6 Prediabetes current HbA1c level 5.6% History of gastric bypass surgery GERD on omeprazole as needed Hyperlipidemia current LDL 129 History of splenectomy. Abnormal lung image on CT (CTA neck obtained for stroke evaluation) - Subcentimeter grouped irregular and somewhat nodular changes noted involving the medial aspect of the right upper lobe lung apex. This may represent subsegmental atelectasis. Consider nonemergent diagnostic evaluation, when clinically indicated. Pt currently does not have any cough, clear lung sounds on phys. exam, no fever, normal WBC Follow up as outpt By CMS guidelines, a determination that the admission or continued stay is not medically necessary has been made by a member of the UR committee and a physician for this hospital stay, therefore a Code 44 will be completed and the Inpatient admission will be changed to outpatient. MD Matthieu Admission and Anticipated Discharge Date Admission Date: August 30, 2023 Subjective Pt seen in follow up of peripheral vision loss, CVA Currently sitting up in chair in NAD, pt's present at the bedside pt says she feels the same way as yesterday - no worsening of symptoms- still with some vision changes No headache, no speech or swallowing difficulty, she moves extremities No fever, chills, chest pain, shortness of breath Review of Systems Review of Systems: All systems reviewed & are unremarkable except as noted in Subjective Physical Exam Physical Exam: General- WD/WN F i n NAD Head- NC/A T Eyes- PERRL, EO AZ, right eye visi on loss on lateral aspect. Neck- timmons pple, no JVD. Kylee gs- clear to auscu ltation no wheezin g or crackles. He art- regular rate and rhythm; no mur mur Abdomen- norm al bowel sounds, s oft, nontender, no distension. Extr emities- trace pr etibial edema, no erythema seen Jen ro- alert, oriente d PERRL, EOMI; no facial palsy; no dysarthria; moves extremities. Results & Data Results & Data Vital Signs (Past 12 Hours) Vital Signs Temp Pulse Pulse Resp BP Pulse Ox O2 Del Method 08/31/23 07:29 80 08/31/23 07:01 36.4 C L 58 L 17 125/78 95 Room Air 08/31/23 02:10 36.6 C 74 18 107/66 96 Room Air 08/31/23 00:10 75 08/30/23 23:35 36.7 C 79 20 160/88 H 96 Room Air 08/30/23 23:15 74 18 131/99 97 Room Air 08/30/23 21:25 71 08/30/23 21:15 72 12 138/80 97 Room Air Laboratory Results 08/31/23 08/30/23 Range/Units 05:20 19:47 WBC 7.89 9.29 (4.8-10.8) K/ul RBC 4.31 4.61 (4.20-5.40) M/uL Hgb 13.6 14.6 (12.0-16.0) g/dl Hct 40.0 42.6 (37.0-47.0) % MCV 92.8 92.4 (80.0-100.0) fL MCH 31.6 31.7 (25.0-34.0) pg MCHC 34.0 34.3 (32.0-36.0) g/dL RDW Std Deviation 47.2 H 47.2 H (36.4-46.3) fL RDW Coeff of Sheila 13.7 13.8 (11.5-14.5) % Plt Count 352 380 (130-400) K/uL MPV 10.5 10.4 (9.4-12.4) fL Immature Gran % (Auto) 0.3 0.2 % Neut % (Auto) 39.7 41.1 % Lymph % (Auto) 41.2 42.9 % [place] % (Auto) 13.6 12.2 % Eos % (Auto) 4.6 2.7 % Baso % (Auto) 0.6 0.9 % Neut # (Auto) 3.14 3.82 (1.40-6.50) K/uL Lymph # (Auto) 3.25 3.99 H (1.20-3.40) K/uL [place] # (Auto) 1.07 H 1.13 H (0.11-0.59) K/uL Eos # (Auto) 0.36 0.25 (0.00-0.50) K/uL Baso # (Auto) 0.05 0.08 (0.00-0.20) K/uL Immature Gran # (Auto) 0.02 0.02 (0.01-0.20) K/uL Sodium 139 140 (136-145) mmol/L Potassium 4.2 4.2 (3.5-5.1) mmol/L Chloride 109 H 106 (98-107) mmol/L Carbon Dioxide 27 28 (21-32) mmol/L Anion Gap 3 6 (3-11) BUN 19 20 (6-23) mg/dl Creatinine 0.52 L 0.55 L (0.6-1.2) mg/dl Est Cr Clr Drug Dosing 95.8 90.0 ml/min Est GFR ( Amer) 108.3 106.3 ml/min Est GFR (Non-Af Amer) 93.5 91.8 ml/min BUN/Creatinine Ratio 36.5 H 36.4 H (10-20) Glucose 99 134 H (70-99(Fasting)) mg/dl Estimat Average Glucose 114 mg/dl Hemoglobin A1c 5.6 (4.5-5.6) % Calcium 8.9 10.0 (8.6-10.3) mg/dl Phosphorus Pending Magnesium Pending Total Bilirubin 0.4 (0.2-1.0) mg/dl AST 25 (13-39) U/L ALT 27 (7-52) U/L Alkaline Phosphatase 86 (34-104) U/L Total Protein 7.6 (6.0-8.3) gm/dl Albumin 4.4 (3.4-5.0) gm/dl Globulin 3.2 (2.5-4.0) gm/dl Albumin/Globulin Ratio 1.4 (0.9-2) Triglycerides 81 (0-150) mg/dl Cholesterol 209 H (0-200) mg/dl LDL Cholesterol, Calc 129 mg/dl VLDL Cholesterol, Calc 16 (0-30) mg/dl HDL Cholesterol 64 mg/dl Cholesterol/HDL Ratio 3.3 (0-5) TSH 2.600 (0.300-4.500) uIu/ml Medications Administered Current Inpatient Medications Acetaminophen (Acetaminophen 325 Mg Tab) 650 mg PO Q4H PRN PRN Reason: Pain or Fever Stop: 09/29/23 23:44 Aspirin (Aspirin 81 Mg Ectab) 81 mg PO DAILY [facility] Stop: 09/30/23 08:59 Sodium Chloride (Nss) 1,000 mls @ 75 mls/hr IV .[id number] CHARLENE Stop: 08/31/23 13:04 Last Admin: 08/31/23 05:53 Dose: 75 mls/hr Levothyroxine Sodium (Levothyroxine Sodium 137 Mcg Tablet) 137 mcg PO DAILYBB [facility] Stop: 09/30/23 06:29 Last Admin: 08/31/23 05:53 Dose: 137 mcg Miscellaneous Information (Pharmacist Discharge Med Rec Consult) 1 each N/A UD PRN PRN Reason: Consult Stop: 09/29/23 23:44 Nitroglycerin (Nitroglycerin Sl 0.4 Mg/Tab Tab) 0.4 mg SL Q5M PRN PRN Reason: Chest Pain Stop: 09/29/23 23:44 Pantoprazole Sodium (Pantoprazole 40 Mg Tab) 40 mg PO DAILY PRN PRN Reason: Heartburn Stop: 09/30/23 23:44 Polyethylene Glycol (Polyethylene (Miralax) 17 Gm Pack) 17 gm PO DAILY PRN PRN Reason: Constipation Stop: 09/29/23 23:44 Rosuvastatin Calcium (Rosuvastatin Calcium 20 Mg Tab) 20 mg PO QAM [facility] Stop: 09/30/23 08:59
[2023-08-31 08:59] LABS: Phosphorus 3.6 mg/dl (2.5-4.9)
[2023-08-31] MEDS: ASPIRIN 81 MG ECTAB PO SCH (09:25)
[2023-08-31] MEDS: ROSUVASTATIN CALCIUM 20 MG TAB PO SCH (09:25)
--- OUTSIDE RECORDS SUMMARY | 2023-08-31 09:42 | External Medical Summary ---
Author Name Unknown Address Unknown Organization K01:[facility] - [address] [place] [id number] Laboratory Report Ordering Provider Test Date Status JARETH SERRATO 05/18/2023 07:40:44 Final Observation Date Value Abnormality Reference (Units ) Status Vitamin B12 05/18/2023 07:40:44 413 102-6927 (pg/mL) Final Performing Location [facility] - [address] [place] [address]
--- OUTSIDE RECORDS SUMMARY | 2023-08-31 09:42 | External Medical Summary ---
Author Name Unknown Address Unknown Organization : Laboratory Report Ordering Provider Test Date Status JARETH SERRATO 05/18/2023 07:40:44 Final Observation Date Value Abnormality Reference (Units ) Status Zinc, level 05/18/2023 07:40:44 96 60-130 ( mcg/dL) Final This test was developed and its analytical performance
characteristics have been determined by [employer]
[place] It has
not been cleared or approved by the U.S. Food and Drug
Administration. This assay has been validated pursuant
to the CLIA regulations and is used for clinical
purposes.

Test Performed at:
[facility]
[id number] [facility]
[place] [address]
Vladislav Todd M.D., Ph.D.,Director of Laboratories Performing Location
--- OUTSIDE RECORDS SUMMARY | 2023-08-31 09:42 | External Medical Summary ---
Author Name Unknown Address Unknown Organization K01:[facility]ATORY [facility] [place] - [address] [place] [address] Laboratory Report Ordering Provider Test Date Status AMATEMPLETON 05/18/2023 07:40:44 Final Observation Date Value Abnormality Reference (Units ) Status Ferritin 05/18/2023 07:40:44 192 Above high normal 13 -150 (ng/mL) Final Postmenopausal women have hi gher ferritin levels than pre-menopausal women. The above reference interval is based on pre-menopausal women. Performing Location LABORATORY [facility] [place] - [address] [place] [address]
--- OUTSIDE RECORDS SUMMARY | 2023-08-31 09:42 | External Medical Summary | Summary of Care ---
Author Name Unknown Organization [facility] Address [address] [address] Phone [phone] Care Team Providers Care Ship Propeller Finisher Name Role Phone Gemini Dorantes MD Primary Care Provider Reason for Visit * Reason Comments Return Visit 6 month return Encounter Details Date Type Department Care Team (Late st Contact Info) Description 05/19/2023 1:40 PM EDT Office Visit Family Practice [facility] [address] [place] [phone] Gemini Dorantes MD [address] [place] [phone] Mixed hyperlipidemia*; History of splenectomy; Postablative hypothyroidism; Prediabetes; PMR (polymyalgia rheumatica) (HCC); Hx of nonmelanoma skin cancer; Screening mammogram for breast cancer Allergies Active Allergy Reactions Criticality Noted Date Comments Adhesive Tape 09/27/2017 Latex Hives 11/13/2019 Pseudoephedrine Hcl Other (Please comment) 04/2018 Inability to sleep Diazepam Other (Please comment) 09/27/2017 Shaking documented as of this encounter (statuses as of 05/19/2023) Medications Medication Sig Dispensed Refills Start Date End Date Status Probiotic Acidophilus BioBeads Oral Capsule Take 1 Cap by mouth daily. 0 Active metroNIDAZOLE 0.75 % External Gel (Metrogel)Indications: Rosacea Apply to cheeks nightly as needed 30 g 1 10/07/2020 Active diphenhydrAMINE HCl 25 MG Oral Capsule Take 1 Capsule by mouth every 6 hours as needed for Sleep or Rhinitis. 0 Active Triamcinolone Acetonide 0.1 % External Cream (Aristocort) Apply to rash on left lower abdomen twice daily as needed 80 g 3 10/13/2022 Active Fluticasone Propionate 50 MCG/ACT Nasal Suspension (Flonase)Indications:A cute non-recurrent maxillary sinusitis Administer 2 Sprays into each nostril in the morning. 15.8 mL 4 02/01/2023 Active Meloxicam 7.5 MG Oral Tablet (Mobic)Indications:PMR (polymyalgia rheumatica) ([facility]),Primary osteoarthritis of first carpometacarpal joint of left hand take 1 tablet by mouth once daily if needed for severe pain 90 Tablet 1 02/09/2023 Active Synthroid 137 MCG Oral TabletIndications:Post ablative hypothyroidism Take 1 Tablet by mouth daily first thing in the morning. Brand name necessary. 90 Tablet 3 02/25/2023 Active Omeprazole 20 MG Oral Capsule Delayed Release (PriLOSEC) Take 1 Capsule by mouth in the morning. 0 Active Pravastatin Sodium 20 MG Oral TabletIndications:Mixe d hyperlipidemia Take 1 Tablet by mouth daily. In the evening. 30 Tablet 5 05/19/2023 Active documented as of this encounter (statuses as of 05/19/2023) Active Problems Problem Noted Date Diagnosed Date Prediabetes 03/02/2021 History of splenectomy 01/18/2020 Overview: Post-splenectomy vaccine recs: PCV20 - 1 dose, no booster Hib - 1 dose, no booster MenACWY - 2 doses, 8wks apart. boost q5yrs MenB - primary series, boost in 1 yr, then every 2-3yrs Influenza - annually Other specified diseases of pancreas 01/18/2020 Overview: Partial pancreectomy Serrated polyposis syndrome 12/27/2019 IPMN (intraductal papillary mucinous neoplasm) 0 11/28/2019 Primary osteoarthritis of fi rst carpometacarpal joint of left hand 08/09/2019 Mixed hyperlipidemia 07/06/2019 Hx of nonmelanoma skin cancer 07/04/2018 Overview: Hx BCC nasal dorsum, BCC R ventral forearm 08/2018, SCC R ear 2016, other BCCs in the past 5 years (all in [place], we are requesting records, repeat) PMR (polymyalgia rheumatica) 09/27/2017 GERD (gastroesophageal reflux disease) 8 Postablative hypothyroidism 09/27/2017 Obesity, Class II, BMI 35-39.9, isolated (see ac tual BMI) 09/27/2017 S/P gastric bypass 09/27/2017 documented as of this encounter (statuses as of 05/19/2023) Resolved Problems Problem Noted Date Diagnosed Date Resolved Date Carpal tunnel syndrome, bilateral 06/30/2018 01/05/2019 documented as of this encounter (statuses as of 05/19/2023) Immunizations Name Administration Dates Next Due COVID-19 mRNA, LNP-s, No Pre serve, 2-Dose Series (Moderna) 12/02/2020,05/02/2020,04/04/2020 COVID-19, mRNA, LNP-s, PF, B ooster, 100mcg/0.5mg (Moderna) 06/04/2021 Covid-19, Mrna, Lnp-s, Pf, B ivalent, 30 Mcg, IM, 12 yrs and above (Pfizer) 11/12/2021 HIB PRP-T, 4 dose (ActHib) 01/04/2020 Meningococcal B, OMV AJD, 2- Dose Series (BEXSERO) 05/19/2023,06/17/2021,06/17/2020,01/03 Meningococcal MCV4O Conjugat e Vaccine (Menveo) 06/17/2020,01/04/2020 Pneumococcal Conjugate Vacc, 13 Valent (Prevnar) 01/04/2020,06/01/2016 Pneumococcal Polysaccharide PPV23 (Pneumovax) 03/18/2020,04/05/2015 RSV Vac., Recomb, Adjuvant, PF,0.5 Ml (Arexvy) 11/06/2022 Season Influenza, Quad, PF, Adjuvanted, 65+ Yrs, IM (FLUAD) 11/06/2022,12/02/2020,12/25/2019 Seasonal Influenza, PF, 6 M & above, IM , (FluLaval or Fluzone) 01/27/2018 Seasonal Influenza, Quadriva lent Hd (Fluzone Hd) 11/12/2021 Seasonal Influenza, Trivalen t, Adjuvanted, 65+ yrs 01/05/2019 TDAP (age 10 and older)(Boostrix) 11/30/2015 Zoster Vaccine Recombinant (Shingrix) 2020 ,02/12/2020 documented as of this encounter Social History Tobacco Use Types Packs/Day Years Used Date Smoking Tobacco: Former Smokeless Tobacco: Never Comments:For about a year an d a half in college about 49 years ago. Alcohol Use Standard Drinks/Week Comments Yes 0 (1 standard drink = 0.6 oz pur e alcohol) Occasional- 2-3 times/week. PHQ-2 Answer Date Recorded PHQ Adult Total Score 0 10/26/2022 Hunger Vital Sign Answer Date Recorded Within the past 12 months, y ou worried that your food would run out before you got the money to buy more. Never true 10/27/19 23 Within the past 12 months, t he food you bought just didn't last and you didn't have money to get more. Never true 10/26/2022 Sex and Gender Information Value Date Recorded Sex Assigned at Female 01/05/2019 9:09 AM EST Gender Identity Female 01/05/2019 9:09 AM EST Sexual Orientation Straight 01/05/2019 9: 09 AM EST Job Start Date Occupation Industry Not on file Not on file Not on file documented as of this encounter Last Filed Vital Signs Vital Sign Reading Time Taken Comments Blood Pressure 116/74 05/19/2023 1:37 PM EDT Pulse 81 05/19/2023 1:37 PM EDT Temperature 36.6 C (97.9 F) 05/19/2023 1:37 PM ED T Respiratory Rate - - Oxygen Saturation 95% 05/19/2023 1:37 PM EDT Inhaled Oxygen Concentration - - Weight 88.5 kg (195 lb 3.2 oz) 05/19/2023 1:37 P M EDT Height 163.2 cm (5' 4.25") 05/19/2023 1:37 PM ED T Body Mass Index 33.25 05/19/2023 1:37 PM EDT documented in this encounter Patient Instructions * Patient Instructions* Gemini Dorantes MD - 05/19/2023 2:10 PM EDT Next Steps: -- take MVI with breakfast. If waiting an hour, that is plenty of time to not interfere with synthroid absorption. documented in this encounter Progress Notes * Gemini Dorantes MD - 05/19/2023 1:56 PM EDT Images from the original note were not included. History of Present Illness Kathy Esparza is a 72 year old female that presents for Return Visit (6 month return ) Thyroid - TSH normal 12/2022. Notices improvement in constipation, dry eyes. No hyperthyroid sx. Feels euthyroid for first time in a really long time. Brand name synthroid has been helpful. Hyperlipidemia - open to rechallenge with Pravachol Prediabetes - A1c 5.7% in Oct 2022. S/p gastric bypass - micronutrient labs drawn yesterday, several still pending. Still struggling with consistently taking MVI. Timing to separate from synthroid has been hard. Polymyalgia rheumatica - on the whole are okay. Needs either meloxicam or aleve for pain. Pain in upper R arm, improving, tends to be after sleeps with R arm above head. Serrated polyposis syndrome - due for colonoscopy this year, scheduled at [facility] on July 01. Nonmelanoma skin cancer - aware she needs to reschedule with Derm, no new/worrisome lesions. Splenectomy: Due for MenACWY booster 12/2025 Due for MenB booster 05/2023 Current medications and allergies reviewed. Past medical history and problem list reviewed. Physical Exam Vitals: 05/19/23 1337 Temp: 36.6 C (97.9 F) Pulse: 81 SpO2: 95% BP: 116/74 BMI: 33.24 BP Readings from Last 3 Encounters: 05/19/23 116/74 10/26/22 124/76 08/25/22 116/70 Wt Readings from Last 3 Encounters: 05/19/23 88.5 kg (195 lb 3.2 oz) 05/19/23 86.6 kg (191 lb) 02/01/23 86.6 kg (191 lb) Physical Exam Vitals and nursing note reviewed. Constitutional: General: She is not in acute distress. Appearance: Normal appearance. She is not ill-appearing. HENT: Head: Normocephalic and atraumatic. Right Ear: Tympanic membrane, ear canal and external ear normal. There is no impacted cerumen. Left Ear: Tympanic membrane, ear canal and external ear normal. There is no impacted cerumen. Nose: Nose normal. Mouth/Throat: Mouth: Mucous membranes are moist. Pharynx: Oropharynx is clear. Eyes: General: No scleral icterus. Conjunctiva/sclera: Conjunctivae normal. Pupils: Pupils are equal, round, and reactive to light. Neck: Thyroid: No thyroid mass, thyromegaly or thyroid tenderness. Cardiovascular: Rate and Rhythm: Normal rate and regular rhythm. Heart sounds: No murmur heard. Pulmonary: Effort: Pulmonary effort is normal. Breath sounds: Normal breath sounds. Musculoskeletal: Right lower leg: No edema. Left lower leg: No edema. Lymphadenopathy: Cervical: No cervical adenopathy. Skin: General: Skin is warm and dry. Neurological: Mental Status: She is alert. Psychiatric: Mood and Affect: Mood normal. Behavior: Behavior normal. I have reviewed the following results: CMP, Lipid Panel, Hemoglobin A1C, TSH, CBC, B12, and 25-Hydroxy Vit D Assessment and Plan Mixed hyperlipidemia Will be alert for generalized body aches, let me know if they develop. - Pravastatin Sodium 20 MG Oral Tablet; Take 1 Tablet by mouth daily. In the evening. History of splenectomy Due for booster of MenB. - MENINGOCOCCAL B, OMV AJD, 2-DOSE SERIES (BEXSERO) Postablative hypothyroidism TSH current, euthyroid, cont current dose. Prediabetes Diet controlled. PMR (polymyalgia rheumatica) (HCC) Sx manageable off steroids. Hx of nonmelanoma skin cancer Will reschedule with derm Screening mammogram for breast cancer - MAMMOGRAM SCREENING BILATERAL; Future Wrap-Up Follow Up: Return in about 6 months (around 11/19/2023) for Return with Jose E. | For: Return with Jose E | Check-out note: Please schedule mammogram Time: I spent a total of 30-39 minutes (exact time 36 mins) on the date of service in preparation, delivery, and documentation of the care provided to Kathy Esparza excluding any time spent in the performance of separately billed services. documented in this encounter Nursing Notes * Farrah Gallagher LPN - 05/19/2023 1:36 PM EDT The patient has been properly identified by confirmation of name and date of . Chief Complaint Patient presents with Return Visit 6 month return Pt states she is feeling well. TSH levels are normalizing on the Synthroid. documented in this encounter Plan of Treatment Upcoming Encounters Date Type Department Care Team (Late st Contact Info) Description 06/21/2023 1:00 PM EDT Imaging Radiology [address] [place] [phone] 07/14/2023 11:40 AM EDT Office Visit Otolaryngology [facility] [address] [place] [phone] Ludin Loyola PA-C [address] [place] [phone] 11/29/2023 3:20 PM EDT Office Visit Family Practice [facility] [address] [place] [phone] Gemini Dorantes MD [address] [place] [phone] Scheduled Orders Name Type Priority Associated Diagnoses Orde r Schedule MAMMOGRAM SCREENING BILATERAL Medical Imaging Routine Screening mammogram for breast cancer Expected: 05/19/2023, Expires: 06/18/2024 Health Maintenance Due Date Last Done Comments Mammogram 07/09/2022 07/09/2021, 06/29, 06/12/2020, Additional history exists COVID-19 Vaccine ( season) 2022 11/12/2021, 06/04/2021, 12/02/2020, Additional history exists Depression Screening 10/27/2023 10/26/2022 HbA1c 11/05/2023 11/04/2022, 04/2021, 02/27/2021 COLONOSCOPY-EVERY 3 YRS AGES 18-100 12/31/2023 12/30/2020, 12/30/2020, 11/13/2019, Additional history exists TSH 01/12/2024 01/11/2023, 07/2022, 06/15/2022, Additional history exists Meningitis B Vaccine (Bexsero/Trumemba) (4 of 4 - Increased Risk Bexsero 2-dose series) 05/18/2025 05/19/2023, 06/17/2021, 06/17/2020, Additional history exists MENINGOCOCCAL (MENACTRA/MENVEO) (3 - Risk 2-dose series) 06/17/2025 06/17/2020, 01/04/2020 DTaP,Tdap,and Td Vaccines (2 - Td or Tdap) 11/29/2025 11/30/2015 Lipid Panel 11/05/2027 11/04/2022, 04/2021, 04/23/2021, Additional history exists DXA Scan 07/08/2028 07/08/2021, 06/29, 07/12/2015, Additional history exists Pneumococcal Vaccine: 65+ Years Completed 03/18/2020, 01/04/2020, 06/01/2016, Additional history exists Zoster Vaccines Completed 2020, 02/12/2020 COLONOSCOPY-ANNUAL AGES 18-100 Discontinued 12/30/2020, 12/30/2020, 11/13/2019, Additional history exists Influenza Vaccine (FLU shot) Completed 11/06/2022, 11/12/2021, 12/02/2020, Additional history exists GARDASIL-HPV IMMUNIZATION SERIES Aged Out No longer eligible based on patient's age to complete this topic Hepatitis B Aged Out No longer eligi ble based on patient's age to complete this topic documented as of this encounter Medical Devices Not on filedocumented as of this encounter Visit Diagnoses Diagnosis Mixed hyperlipidemia- Primary History of splenectomy Other acquired absence of organ Postablative hypothyroidism Other postablative hypothyroidism Prediabetes Other abnormal glucose PMR (polymyalgia rheumatica) (HCC) Polymyalgia rheumatica Hx of nonmelanoma skin cancer Personal history of other malignant neoplasm of skin Screening mammogram for breast cancer documented in this encounter Additional Health Concerns Infection Onset Date Last Indicated Resolved Time COVID-19 (confirmed) 07/25/2021 07/25/2021 documented as of this encounter Care Teams Ship Propeller Finisher Relationship Specialty Start Date End Date Gemini Dorantes MD [address] [place] [id number] PCP - General Internal Medicine 10/26/22 documented as of this encounter
--- OUTSIDE RECORDS SUMMARY | 2023-08-31 09:42 | External Medical Summary ---
Author Name Unknown Address Unknown Organization K01:LABORATORY [facility] - [address] [place] [address] Laboratory Report Ordering Provider Test Date Status JARETH SERRATO 05/18/2023 07:40:44 Final Observation Date Value Abnormality Reference (Units ) Status Iron 05/18/2023 07:40:44 134 33-151 (ug /dL) Final Iron-binding capacity 05/18/2023 07:40:44 373 250-425 (ug/dL) Final Transferrin Sat % 05/18/2023 07:40:44 36 15 -55 (%) Final Performing Location LABORATORY C - [address] [place] [address]
--- OUTSIDE RECORDS SUMMARY | 2023-08-31 09:42 | External Medical Summary ---
Author Name Unknown Address Unknown Organization : Laboratory Report Ordering Provider Test Date Status JARETH SERRATO 05/18/2023 07:40:44 Final Observation Date Value Abnormality Reference (Units ) Status Thiamine [Moles/volume] in Blood 05/18/2023 07:40:44 103 78-185 (nmol/L) Final Vitamin supplementation with in 24 hours prior to
blood draw may affect the accuracy of the results.
This test was developed and its analytical performance
characteristics have been determined by [employer] [place], [place]. It has
not been cleared or approved by the U.S. Food and Drug
Administration. This assay has been validated pursuant
to the CLIA regulations and is used for clinical
purposes.

Test Performed at:
[facility]
[address] [facility]
[place] [address]
Vladislav Todd M.D., Ph.D.,Director of Laboratories Performing Location
--- OUTSIDE RECORDS SUMMARY | 2023-08-31 09:42 | External Medical Summary | Summary of Care ---
Author Name Unknown Organization [facility] Address [address] [address] Phone [phone] Care Team Providers Care Podiatric Assistant Name Role Phone Gemini Dorantes MD Primary Care Provider Reason for Visit * Reason Onset Date Comments Medication Refill 05/21/2023 Encounter Details Date Type Department Care Team (Late st Contact Info) Description 05/21/2023 Refill Family Practice [facility] [address] [place] [address] Gemini Dorantes MD [address] [place] [id number] Mixed hyperlipidemia Allergies Active Allergy Reactions Criticality Noted Date Comments Adhesive Tape 09/27/2017 Latex Hives 11/13/2019 Pseudoephedrine Hcl Other (Please comment) 04/2018 Inability to sleep Diazepam Other (Please comment) 09/27/2017 Shaking documented as of this encounter (statuses as of 05/24/2023) Medications Medication Sig Dispensed Refills Start Date End Date Status Probiotic Acidophilus BioBeads Oral Capsule Take 1 Cap by mouth daily. 0 Active metroNIDAZOLE 0.75 % External Gel (Metrogel)Indication s:Rosacea Apply to cheeks nightly as needed 30 g 1 10/07/2020 Active diphenhydrAMINE HCl 25 MG Oral Capsule Take 1 Capsule by mouth every 6 hours as needed for Sleep or Rhinitis. 0 Active Triamcinolone Acetonide 0.1 % External Cream (Aristocort) Apply to rash on left lower abdomen twice daily as needed 80 g 3 10/13/2022 Active Fluticasone Propionate 50 MCG/ACT Nasal Suspension (Flonase)Indications :Acute non-recurrent maxillary sinusitis Administer 2 Sprays into each nostril in the morning. 15.8 mL 4 02/01/2023 Active Meloxicam 7.5 MG Oral Tablet (Mobic)Indications:P MR (polymyalgia rheumatica) (HCC),Primary osteoarthritis of first carpometacarpal joint of left hand take 1 tablet by mouth once daily if needed for severe pain 90 Tablet 1 02/09/2023 Active Synthroid 137 MCG Oral TabletIndications:Po stablative hypothyroidism Take 1 Tablet by mouth daily first thing in the morning. Brand name necessary. 90 Tablet 3 02/25/2023 Active Omeprazole 20 MG Oral Capsule Delayed Release (PriLOSEC) Take 1 Capsule by mouth in the morning. 0 Active Pravastatin Sodium 20 MG Oral TabletIndications:Mi xed hyperlipidemia Take 1 Tablet by mouth daily. In the evening. 30 Tablet 5 05/24/2023 Active Pravastatin Sodium 20 MG Oral TabletIndications:Mi xed hyperlipidemia Take 1 Tablet by mouth daily. In the evening. 30 Tablet 5 05/19/2023 4 Discontinue d(Refill) documented as of this encounter (statuses as of 05/24/2023) Active Problems Problem Noted Date Diagnosed Date [...] R ventral forearm 08/2018, SCC R ear 2017, other BCCs in the past 5 years (all in [place], we are requesting records, repeat) PMR (polymyalgia rheumatica) 09/27/2017 GERD (gastroesophageal reflux disease) 8 Postablative hypothyroidism 09/27/2017 Obesity, Class II, BMI 35-39.9, isolated (see ac tual BMI) 09/27/2017 S/P gastric bypass 09/27/2017 documented as of this encounter (statuses as of 05/24/2023) Resolved Problems Problem Noted Date Diagnosed Date Resolved Date Carpal tunnel syndrome, bilateral 06/30/2018 01/05/2019 documented as of this encounter (statuses as of 05/24/2023) Immunizations Name Administration Dates Next Due COVID-19 [...] on file documented as of this encounter Miscellaneous Notes * Telephone Encounter - Gemini Dorantes MD - 05/24/2023 12:59 PM EDT Signed Prescriptions: Disp Refills Pravastatin Sodium 20 MG Oral Tablet 30 Tab*5 Sig: Take 1 Tablet by mouth daily. In the evening. Authorizing Provider: GEMINI DORANTES * Telephone Encounter - Farrah Gallagher LPN - 05/24/2023 9:51 AM EDTPending Prescriptions: Disp Refills Pravastatin Sodium 20 MG Oral Tablet 30 Tab*5 Sig: Take 1 Tablet by mouth daily. In the evening. * Telephone Encounter - Blanquita Juarez OSA - 05/21/2023 5:02 PM EDT Did you pend patient's preferred pharmacy and medication before forwarding?yes [facility]acy: [facility] #[id number] Pending Prescriptions: Disp Refills Pravastatin Sodium 20 MG Oral Tablet 30 Tab*5 Sig: Take 1 Tablet by mouth daily. In the evening. Last Visit: 05/19/2023 (in office), Visit date not found (telemedicine) Next Visit: 11/29/2023 If no future appointments scheduled, and last appointment is greater than a year ago, please schedule patient for a follow-up appointment Last date the medication was ordered: 05.19.23 Is this request for a controlled substance?No 90 day refill request Urine Drug Screen:No results found for this or any previous visit. Patient Phone Numbers Labs: Lab Results Component Value Date/Time CREAT 0.7 11/04/2022 08:11 AM CREAT 0.60 04/23/2021 12:00 AM CREAT 0.6 01/24/2020 11:54 AM POTASSIUM 4.7 11/04/2022 08:11 AM POTASSIUM 4.6 04/23/2021 12:00 AM POTASSIUM 4.7 01/24/2020 11:54 AM TSH 0.61 01/11/2023 10:35 AM TSH 0.462 (A) 04/23/2021 12:00 AM TSH 1.84 12/25/2019 07:22 AM LDLCALC 141 (H) 11/04/2022 08:11 AM LDLCALC 60 04/23/2021 12:00 AM LDLCALC 154 (H) 01/24/2020 11:54 AM LDLDIRECT NOT APPLICABLE 01/24/2020 11:54 AM ALT 28 11/04/2022 08:11 AM ALT 27 01/24/2020 11:54 AM HGBA1C 5.7 (H) 11/04/2022 08:11 AM documented in this encounter Plan of Treatment Upcoming Encounters Date Type Department Care Team (Late st Contact Info) Description 06/21/2023 1:00 PM EDT Imaging Radiology [facility] [address] [place] [id number] 07/14/2023 11:40 AM EDT Office Visit Otolaryngology [facility] [address] [place] [address] Ludin Loyola PA-C [address] [place] [address] 11/29/2023 3:20 PM EDT Office Visit Family Practice [facility] [address] [place] [address] Gemini Dorantes MD [address] [place] [address] Health Maintenance Due Date Last Done Comments Mammogram 07/09/2022 07/09/2021, 06/29, 06/12/2020, Additional history exists COVID-19 Vaccine (2022- season) 2022 11/12/2021, 06/04/2021, 12/02/2020, Additional history exists Depression Screening 10/27/2023 10/26/2022 HbA1c 11/05/2023 11/04/2022, 11/0 04/2021, 02/27/2021 COLONOSCOPY-EVERY 3 YRS AGES 18-100 [...] of this encounter Visit Diagnoses Diagnosis Mixed hyperlipidemia documented in this encounter Additional Health Concerns Infection Onset Date Last Indicated Resolved Time COVID-19 (confirmed) 07/25/2021 07/25/2021 documented as of this encounter Care Teams Podiatric Assistant Relationship Specialty Start Date End Date Gemini Dorantes MD [address] [place] [address] PCP - General Internal Medicine 10/26/22 documented as of this encounter
--- OUTSIDE RECORDS SUMMARY | 2023-08-31 09:42 | External Medical Summary | Summary of Care ---
Author Name Unknown Organization [facility] Address [address] [facility] [place] [address] Phone [phone] Care Team Providers Care Supervisory Air Intercept Controller Name Role Phone Gemini Dorantes MD Primary Care Provider Reason for Visit * Reason Comments Follow Up 8 week follow up Encounter Details Date Type Department Care Team (Late st Contact Info) Description 07/14/2023 11:40 AM EDT Office Visit Otolaryngology [facility] [address] [place] [address] Ludin Loyola PA-C [address] [place] [address] Bilateral impacted cerumen* Allergies Active Allergy Reactions Criticality Noted Date Comments Adhesive Tape 09/27/2017 Latex Hives 11/13/2019 Pseudoephedrine Hcl Other (Please comment) 04/2018 Inability to sleep Diazepam Other (Please comment) 09/27/2017 Shaking documented as of this encounter (statuses as of 07/15/2023) Medications Medication Sig Dispensed Refills Start Date [...] 7.5 MG Oral Tablet (Mobic)Indications:PMR (polymyalgia rheumatica) (HCC),Primary osteoarthritis of first carpometacarpal [...] the evening. 30 Tablet 5 05/24/2023 Active documented as of this encounter (statuses as of 07/15/2023) Active Problems Problem Noted Date Diagnosed Date [...] as of this encounter (statuses as of 07/15/2023) Resolved Problems Problem Noted Date Diagnosed Date Resolved Date Carpal tunnel syndrome, bilateral 06/30/2018 01/05/2019 documented as of this encounter (statuses as of 07/15/2023) Immunizations Name Administration Dates Next Due COVID-19 [...] Date Smoking Tobacco: Former Smokeless Tobacco: Never Tobacco Cessation:Counseling Given: Not Answered Comments:For about a year and a half in college about 49 years [...] Sign Reading Time Taken Comments Blood Pressure - - Pulse - - Temperature 36.6 C (97.8 F) 07/14/2023 11:29 AM E DT Respiratory Rate - - Oxygen Saturation - - Inhaled Oxygen Concentration - - Weight 87.8 kg (193 lb 9.6 oz) 07/14/2023 11:29 AM EDT Height 163.2 cm (5' 4.25") 07/14/2023 11:29 AM E DT Body Mass Index 32.97 07/14/2023 11:29 AM EDT documented in this encounter Progress Notes * Ludin Loyola PA-C - 07/14/2023 11:36 AM EDT Nursing Notes: Olayinka Maldonado, BLAKE 07/14/23 1131 Signed Chief Complaint Patient presents with Follow Up 8 week follow up Kathy Esparza is a 73 year old female who presents today for a 8 week follow up for her eras.She states that she has wax in both ears and her right ear is worse than her left. She has some pressure in her right ear and some bilateral tinnitus and hearing loss that comes and goes. She uses hearing aids in both ears since 2019. History of Present Illness This 73 year old female is seen for follow up of bilateral cerumen impaction. The patient reported she is doing well but does feel her ears are blocked with cerumen, R>L. The patient denied otalgia and otorrhea. She has used mineral oil drops which does seem to help. Medical History Patient Active Problem List Diagnosis Code PMR (polymyalgia rheumatica) ([facility]) M35.3 GERD (gastroesophageal reflux disease) K21.9 Postablative hypothyroidism E89.0 Obesity, Class II, BMI 35-39.9, isolated (see actual BMI) E66.9 S/P gastric bypass Z98.84 Hx of nonmelanoma skin cancer Z85.828 Mixed hyperlipidemia E78.2 Primary osteoarthritis of first carpometacarpal joint of left hand M18.12 IPMN (intraductal papillary mucinous neoplasm) D49.0 Serrated polyposis syndrome D12.6 History of splenectomy Z90.81 Other specified diseases of pancreas K86.89 Prediabetes R73.03 Past Medical History: Diagnosis Date Carpal tunnel syndrome, bilateral 06/30/2018 GERD (gastroesophageal reflux disease) 09/27/2017 Graves disease IPMN (intraductal papillary mucinous neoplasm) 11/28/2019 Meniere's disease PMR (polymyalgia rheumatica) ([facility]) 09/27/2017 Postablative hypothyroidism 09/27/2017 Prediabetes 03/02/2021 Past Surgical History: Procedure Laterality Date CARPAL TUNNEL SURGERY Right 09/21/2018 NEUROPLASTY MEDIAN NERVE AT CARPAL TUNNEL performed by Rene Poole MD at [facility] CARPAL TUNNEL SURGERY Left 10/19/2018 NEUROPLASTY MEDIAN NERVE AT CARPAL TUNNEL performed by Rene Poole MD at [facility] GASTRIC REVISION FOR OBESITY 03/2013 Gastric sleeve LAPAROSCOPY,SURG,SPLENECTOMY 12/2019 [facility] LIGATE/CUT OVIDUCT(S) NM RADIOPHARNACEUTICAL THYROID CANCER ABLATION grave's disease PARTIAL HYSTERECTOMY benign PARTIAL REMOVAL OF PANCREAS 12/2019 [facility] REMOVAL OF TONSILS, UNDER AGE 10 Family History Problem Relation Age of Onset Pulmonary embolism Mother likely from broken hip Pancreatic cancer Father 68 heavy smoker until mid-40s Cancer Grandfather (Paternal) 66 stomach/small intestine. early 1950s. Other (cyclical vomiting syndrome) Son Pancreatic cancer Aunt (Paternal) 68 Colon cancer Aunt (Paternal) 96 Colon cancer Aunt (Paternal) Colon cancer Uncle (Paternal) 85 Social History Tobacco Use Smoking status: Former Smokeless tobacco: Never Tobacco comments: For about a year and a half in college about 49 years ago. Substance Use Topics Alcohol use: Yes Comment: Occasional- 2-3 times/week. Vaping/E-Cigarette Use Vaping/E-Cigarette Substances Vaping/E-Cigarette Devices Medications Current Outpatient Medications Medication Sig Dispense Refill Probiotic Acidophilus BioBeads Oral Capsule Take 1 Cap by mouth daily. metroNIDAZOLE 0.75 % External Gel (Metrogel) Apply to cheeks nightly as needed 30 g 1 diphenhydrAMINE HCl 25 MG Oral Capsule Take 1 Capsule by mouth every 6 hours as needed for Sleep orRhinitis. Triamcinolone Acetonide 0.1 % External Cream (Aristocort) Apply to rash on left lower abdomen twicedaily as needed 80 g 3 Fluticasone Propionate 50 MCG/ACT Nasal Suspension (Flonase) Administer 2 Sprays into each nostril in the morning. 15.8 mL 4 Meloxicam 7.5 MG Oral Tablet (Mobic) take 1 tablet by mouth once daily if needed for severe pain 90Tablet 1 Synthroid 137 MCG Oral Tablet Take 1 Tablet by mouth daily first thing in the morning. Brand name necessary. 90 Tablet 3 Omeprazole 20 MG Oral Capsule Delayed Release (PriLOSEC) Take 1 Capsule by mouth in the morning. Pravastatin Sodium 20 MG Oral Tablet Take 1 Tablet by mouth daily. In the evening. 30 Tablet 5 No current facility-administered medications for this visit. Allergies Review of patient's allergies indicates: Allergen Reactions Adhesive Tape Latex Hives Sudafed [Pseudoephedrine Hcl] Other (Please comment) Inability to sleep Valium [Diazepam] Other (Please comment) Shaking Review of Systems Negative for constitutional, heart, lung, liver, kidney, digestive, hematologic, neurologic, rheumatologic, or endocrine complaints except as per history of present illness and past medical history Physical Exam Temp 36.6 C (97.8 F) (Tympanic) | Ht 1.632 m (5' 4.25") | Wt 87.8 kg (193 lb 9.6 oz) | BMI 32.97 kg/m | BSA 2 m General: This is a healthy appearing female who appears her stated age. The patient is alert and appropriately verbally conversant without hoarseness. Face: The face was inspected and no cutaneous masses or lesions were visualized. There was no erythema or edema noted. Facial movement was symmetric without weakness. No skin lesions were detected. No sinus tenderness to palpation. Nose: no mucosal erythema, no mucosal edema, and no purulent discharge Mouth: no exudate, no erythema, and lips, mucosa, and tongue normal Neck: supple, no adenopathy IN ORDER TO BETTER EXAMINE THE EARS, THE PATIENT WAS EXAMINED USING THE OPERATING MICROSCOPE. FINDINGS ARE NOTED BELOW. Ears: Examination of the ears revealed that the auricles were normally formed with no lesions. The right external auditory canal was noted to be narrow with impacted cerumen. It was removed using suction atraumatically by me. The right TM was WNL. The right middle ear space was WNL. The left external auditory canal was narrow with impacted soft cerumen. It was removed using suction atraumatically by me. The left TM was WNL. The left middle ear space was WNL Assessment and Plan: Encounter Diagnoses Name Primary? Bilateral impacted cerumen Yes Plan: Findings and recommendations were discussed with the patient. Patient will follow up in 8-9 weeks for routine cleaning, sooner PRN. Should use mineral oil 3-4 times weekly and daily for 7-10 days prior to next appointment. Pt verbalized understanding and agrees with plan. Questions/Concerns addressed. Patient Goals for plan of care discussed in detail. Ludin Loyola PA-C [facility] OUTPATIENT SURG[facility] [place] [facility] [address] [place] [address] 07/15/2023 10:33 AM documented in this encounter Nursing Notes * Olayinka Maldonado CMA - 07/14/2023 11:30 AM EDT Chief Complaint Patient presents with Follow Up 8 week follow up Kathy Esparza is a 73 year old female who presents today for a 8 week follow up for her eras.She states that she has wax in both ears and her right ear is worse than her left. She has some pressure in her right ear and some bilateral tinnitus and hearing loss that comes and goes. She uses hearing aids in both ears since 2019. documented in this encounter Plan of Treatment Upcoming Encounters Date Type Department Care Team (Late st Contact Info) Description 09/27/2023 11:40 AM EDT Office Visit Otolaryngology [facility] [address] [place] [address] Ludin Loyola PA-C [address] [place] [address] 11/29/2023 3:20 PM EDT Office Visit Family Practice [facility] [address] [place] [address] Gemini Dorantes MD [address] [place] [address] 06/20/2024 9:15 AM EDT Office Visit Dermatology [facility] [address] [facility] [place] [address] Hang Choudhary MD [address] [place] [address] Health Maintenance Due Date Last Done Comments COVID-19 Vaccine (2022- season) 2022 11/12/2021, 06/04/2021, 12/02/2020, Additional history exists Depression Screening 10/27/2023 10/26/2022 HbA1c 11/05/2023 11/04/2022, 04/2021, 02/27/2021 TSH 01/12/2024 01/11/2023, 07/2022, 06/15/2022, Additional history exists Meningitis B Vaccine (Bexsero/Trumemba) (4 of 4 - Increased Risk Bexsero 2-dose series) 05/18/2025 05/19/2023, 06/17/2021, 06/17/2020, Additional history exists MENINGOCOCCAL (MENACTRA/MENVEO) (3 - Risk 2-dose series) 06/17/2025 06/17/2020, 01/04/2020 DTaP,Tdap,and Td Vaccines (2 - Td or Tdap) 11/29/2025 11/30/2015 Colonoscopy 07/01/2026 07/02/2023, 03/2020, 12/30/2020, Additional history exists DXA Scan 07/08/2028 07/08/2021, 06/29, 07/12/2015, Additional history exists Pneumococcal Vaccine: 65+ Years Completed 03/18/2020, 01/04/2020, 06/01/2016, Additional history exists Zoster Vaccines Completed 2020, 02/12/2020 Influenza Vaccine (FLU shot) Completed 11/06/2022, 11/12/2021, 12/02/2020, Additional history exists RETIRED - COLONOSCOPY-ANNUAL AGES 18-100 Discontinued 07/02/2023, 12/30/2020, 12/30/2020, Additional history exists GARDASIL-HPV IMMUNIZATION SERIES Aged Out No longer eligible based on patient's age to complete this topic Hepatitis B Aged Out No longer eligi ble based on patient's age to complete this topic documented as of this encounter Medical Devices Not on filedocumented as of this encounter Visit Diagnoses Diagnosis Bilateral impacted cerumen- Primary Impacted cerumen documented in this encounter Additional Health Concerns Infection Onset Date Last Indicated Resolved Time COVID-19 (confirmed) 07/25/2021 07/25/2021 documented as of this encounter Care Teams Supervisory Air Intercept Controller Relationship Specialty Start Date End Date Gemini Dorantes MD [address] [place] [address] PCP - General Internal Medicine 10/26/22 documented as of this encounter
--- OUTSIDE RECORDS SUMMARY | 2023-08-31 09:42 | External Medical Summary ---
Author Name Unknown Address Unknown Organization K01:LABORATORY C - [address] [place] [address] Laboratory Report Ordering Provider Test Date Status JARETH SERRATO 05/18/2023 07:40:44 Final Observation Date Value Abnormality Reference (Units ) Status Folic Acid 05/18/2023 07:40:44 >20.0 >4.5 (ng/ mL) Final Performing Location LABORATORY [facility] - [address] [place] [address]
--- OUTSIDE RECORDS SUMMARY | 2023-08-31 09:42 | External Medical Summary ---
Author Name Unknown Address Unknown Organization : Laboratory Report Ordering Provider Test Date Status JARETH SERRATO 05/18/2023 07:40:44 Final Observation Date Value Abnormality Reference (Units ) Status Vitamin A, level 05/18/2023 07:40:44 48 38- 98 (mcg/dL) Final Vitamin supplementation with in 24 hours prior to
blood draw may affect the accuracy of the results.
This test was developed and its analytical performance
characteristics have been determined by [employer]
[facility] [place]. It has
not been cleared or approved by the U.S. Food and Drug
Administration. This assay has been validated pursuant
to the CLIA regulations and is used for clinical
purposes.

Test Performed at:
[facility]
[address]
[place] [address]
Vladislav Todd M.D., Ph.D.,Director of Laboratories Performing Location
--- OUTSIDE RECORDS SUMMARY | 2023-08-31 09:42 | External Medical Summary ---
Author Name Unknown Address Unknown Organization : Laboratory Report Ordering Provider Test Date Status JARETH SERRATO 05/18/2023 07:40:44 Final Observation Date Value Abnormality Reference (Units ) Status Vitamin K-1, level 05/18/2023 07:40:44 782 1 30-1500 (pg/mL) Final This test was developed and its analytical performance
characteristics have been determined by [employer] [place], [place]. It has
not been cleared or approved by the U.S. Food and Drug
Administration. This assay has been validated pursuant
to the CLIA regulations and is used for clinical
purposes.

Test Performed at:
[facility]
[address] [facility]
[place] [address]
Vladislav Todd M.D., Ph.D.,Director of Laboratories Performing Location
--- OUTSIDE RECORDS SUMMARY | 2023-08-31 09:42 | External Medical Summary ---
Author Name Unknown Address Unknown Organization : Laboratory Report Ordering Provider Test Date Status JARETH SERRATO 05/18/2023 07:40:44 Final Observation Date Value Abnormality Reference (Units ) Status Vitamin E, level 05/18/2023 07:40:44 14.4 5.7 -19.9 (mg/L) Final Levels of alpha-tocopherol < 5 mg/L are consistent
with Vitamin E deficiency in adults. Beta+gamma tocopherol [Mass/ volume] in Serum or Plasma 05/18/2023 07:40:44 1.8 <=4.3 (mg/L) Final Vitamin supplementation with in 24 hours prior to
blood draw may affect the accuracy of the results.
This test was developed and its analytical performance
characteristics have been determined by [facility] [place], [place]. It has
not been cleared or approved by the U.S. Food and Drug
Administration. This assay has been validated pursuant
to the CLIA regulations and is used for clinical
purposes.

Test Performed at:
[facility]
[address] [facility]
[place] [address]
Vladislav Todd M.D., Ph.D.,Director of Laboratories Performing Location
--- OUTSIDE RECORDS SUMMARY | 2023-08-31 09:42 | External Medical Summary | Summary of Care ---
Author Name Unknown Organization [facility] Address [address] [facility] [place] [address] Phone [phone] Care Team Providers Care Checkerer Hand Name Role Phone Gemini Dorantes MD Primary Care Provider Reason for Visit * Reason Comments Follow Up Cerumen removal Encounter Details Date Type Department Care Team (Late st Contact Info) Description 05/19/2023 10:40 AM EDT Office Visit Otolaryngology [facility] [address] [place] [address] Ludin Loyola PA-C [address] [place] [phone] Bilateral impacted cerumen* Allergies Active Allergy Reactions [...] name necessary. 90 Tablet 3 02/25/2023 Active documented as of this encounter (statuses [...] B, OMV AJD, 2- Dose Series (BEXSERO) 06/17/2021,06/17/2020,01/04/2020 Meningococcal MCV4O Conjugat e Vaccine (Menveo) 06/17/2020,01/04/2020 [...] - - Temperature 36.6 C (97.8 F) 05/19/2023 10:38 AM E DT Respiratory Rate - - Oxygen Saturation - - Inhaled Oxygen Concentration - - Weight 86.6 kg (191 lb) 05/19/2023 10:38 AM EDT Height 163.2 cm (5' 4.25") 05/19/2023 10:38 AM E DT Body Mass Index 32.53 05/19/2023 10:38 AM EDT documented in this encounter Patient Instructions * Patient Instructions* Ludin Loyola PA-C - 05/19/2023 11:17 AM EDT Mineral oil few times a week as preventative. -FU in 8 weeks for cerumen removal, call/message sooner with any concerns documented in this encounter Progress Notes * Ludin Loyola PA-C - 05/19/2023 10:41 AM EDT Nursing Notes: Olayinka Maldonado, BLAKE 05/19/23 1039 Signed Chief Complaint Patient presents with Follow Up Cerumen removal Kathy Esparza is a 72 year old female who presents today for a follow up for cerumen removal.She states that she has wax in her right ear. History of Present Illness This 72 year old female is seen for follow up of bilateral cerumen impaction. The patient reported she is doing well but does feel her ears are blocked . The patient denied otalgia and otorrhea. She has used mineral oil drops which does seem to help. Medical History Patient Active Problem List Diagnosis Code PMR (polymyalgia rheumatica) ([facility]) M35.3 GERD (gastroesophageal reflux disease) [...] neoplasm) 11/28/2019 Meniere's disease PMR (polymyalgia rheumatica) ([facility]) 09/27/2017 Postablative hypothyroidism 09/27/2017 Prediabetes 03/02/2021 Past Surgical History: Procedure Laterality Date CARPAL TUNNEL SURGERY Right 09/21/2018 NEUROPLASTY MEDIAN NERVE AT CARPAL TUNNEL performed by Rene Poole MD at OR [facility] CARPAL TUNNEL SURGERY Left 10/19/2018 NEUROPLASTY MEDIAN NERVE AT CARPAL TUNNEL performed by Rene Poole MD at [facility] GASTRIC REVISION FOR OBESITY 03/2013 Gastric [...] morning. Brand name necessary. 90 Tablet 3 No current facility-administered medications for this visit. [...] Ht 1.632 m (5' 4.25") | Wt 86.6 kg (191 lb) | BMI 32.53 kg/m | BSA 1.98 m General: This is a healthy appearing [...] care discussed in detail. Ludin Loyola PA-C [facility] OUTPATIENT SURGERY [facility] [address] [place] [address] 05/19/2023 11:48 AM documented in this encounter Nursing Notes * Olayinka Maldonado CMA - 05/19/2023 10:38 AM EDT Chief Complaint Patient presents with Follow Up Cerumen removal Kathy Esparza is a 72 year old female who presents today for a follow up for cerumen removal.She states that she has wax in her right ear. documented in this encounter Plan of Treatment Upcoming Encounters Date Type Department Care Team (Late st Contact Info) Description 05/19/2023 1:40 PM EDT Office Visit Family Practice [facility] [address] [place] [address] Gemini Dorantes MD [address] [place] [address] 07/14/2023 11:40 AM EDT Office Visit Otolaryngology [facility] [address] [place] [address] Ludin Loyola PA-C [address] [place] [address] Health Maintenance Due Date Last Done Comments Mammogram 07/09/2022 07/09/2021, 06/29, 06/12/2020, Additional history exists COVID-19 Vaccine (2022- season) 2022 11/12/2021, 06/04/2021, 12/02/2020, Additional history exists Meningitis B Vaccine (Bexsero/Trumemba) (4 of 4 - Increased Risk Bexsero 2-dose series) 06/18/2023 06/17/2021, 06/17/2020, 01/04/2020 Depression Screening 10/27/2023 10/26/2022 HbA1c 11/05/2023 11/04/2022, 04/2021, 02/27/2021 COLONOSCOPY-EVERY 3 YRS AGES 18-100 12/31/2023 12/30/2020, 12/30/2020, 11/13/2019, Additional history exists TSH 01/12/2024 01/11/2023, 07/2022, 06/15/2022, Additional history exists MENINGOCOCCAL (MENACTRA/MENVEO) (3 - [...] documented as of this encounter Care Teams Checkerer Hand Relationship Specialty Start Date End Date Gemini Dorantes MD [address] [place] [address] PCP - General Internal Medicine 10/26/22 documented as of this encounter
--- OUTSIDE RECORDS SUMMARY | 2023-08-31 09:42 | External Medical Summary ---
Author Name Unknown Address Unknown Organization [facility] - [address] [place] [id number] Laboratory Report Ordering Provider Test Date Status JARETH SERRATO 05/18/2023 07:40:44 Final Deficient: <20 ng/mL
Ins ufficient: 20-29 ng/mL
Recommended/Optimum:30-50 ng/mL

Vitamin D intoxication is rare. If suspicious of Vitamin D toxicity, evaluation of serum Calcium and PTH is recommended. Observation Date Value Abnormality Reference (Units ) Status 25-OH Vitamin D total 05/18/2023 07:40:44 27 >19 (ng/mL) Final Performing Location [facility] - [address] [place] [address]
--- OUTSIDE RECORDS SUMMARY | 2023-08-31 09:42 | External Medical Summary | Summary of Care ---
Author Name Unknown Organization [facility] Address [address] [place] [address] Phone [phone] Care Team Providers Care Resolute Professional Name Role Phone Gemini Dorantes MD Primary Care Provider Reason for Visit * Reason Comments Outpatient Testing Encounter Details Date Type Department Care Team (Late st Contact Info) Description 05/18/2023 7:50 AM EDT [facility] [address] [place] [phone] [place], [address] [place] [address] Intestinal postoperative nonabsorption Allergies Active Allergy Reactions Criticality Noted Date Comments Adhesive Tape 09/27/2017 Latex Hives 11/13/2019 Pseudoephedrine Hcl Other (Please comment) 04/2018 Inability to sleep Diazepam Other (Please comment) 09/27/2017 Shaking documented as of this encounter (statuses as of 05/18/2023) Medications Medication Sig Dispensed Refills Start Date [...] as of this encounter (statuses as of 05/18/2023) Active Problems Problem Noted Date Diagnosed Date [...] as of this encounter (statuses as of 05/18/2023) Resolved Problems Problem Noted Date Diagnosed Date Resolved Date Carpal tunnel syndrome, bilateral 06/30/2018 01/05/2019 documented as of this encounter (statuses as of 05/18/2023) Immunizations Name Administration Dates Next Due COVID-19 [...] on file documented as of this encounter Plan of Treatment Upcoming Encounters Date Type Department Care Team (Late st Contact Info) Description 05/19/2023 10:40 AM EDT Office Visit Otolaryngology [facility] [address] [place] [address] Ludin Loyola PA-C [address] [place] [address] 05/19/2023 1:40 PM EDT Office Visit Family Practice [facility] [address] [place] [address] Gemini Dorantes MD [address] [place] [address] Pending Results Name Type Priority Associated Diagnoses Date /Time VITAMIN A (RETINOL) Lab Routine Intestinal postoperative nonabsorption 05/18/2023 7:40 AM EDT 25-HYDROXY VITAMIN D Lab Routine Intestinal postoperative nonabsorption 05/18/2023 7:40 AM EDT FOLIC ACID Lab Routine Intestinal postoperative nonabsorption 05/18/2023 7:40 AM EDT FERRITIN Lab Routine Intestinal postoperative nonabsorption 05/18/2023 7:40 AM EDT IRON SCREEN, INCLUDING TIBC Lab Routine Intestinal postoperative nonabsorption 05/18/2023 7:40 AM EDT ZINC Lab Routine Intestinal postoperative nonabsorption 05/18/2023 7:40 AM EDT VITAMIN B12 Lab Routine Intestinal postoperative nonabsorption 05/18/2023 7:40 AM EDT COPPER, SERUM OR PLASMA Lab Routine Intestinal postoperative nonabsorption 05/18/2023 7:40 AM EDT VITAMIN B1 (THIAMINE), BLOOD, LC/MS/MS Lab Routine Intestinal postoperative nonabsorption 05/18/2023 7:40 AM EDT VITAMIN E (TOCOPHEROL) Lab Routine Intestinal postoperative nonabsorption 05/18/2023 7:40 AM EDT VITAMIN K Lab Routine Intestinal postoperative nonabsorption 05/18/2023 7:40 AM EDT Health Maintenance Due Date Last Done Comments Mammogram 07/09/2022 07/09/2021, 06/29, 06/12/2020, Additional history exists COVID-19 Vaccine ( season) 2022 11/12/2021, 06/04/2021, 12/02/2020, Additional history exists Meningitis B Vaccine (Bexsero/Trumemba) (4 of 4 - Increased Risk Bexsero 2-dose series) 06/18/2023 06/17/2021, 06/17/2020, 01/04/2020 Depression Screening 10/27/2023 10/26/2022 HbA1c 11/05/2023 11/04/2022, 1104/2021, 02/27/2021 COLONOSCOPY-EVERY 3 YRS AGES 18-100 12/31/2023 12/30/2020, 12/30/2020, 11/13/2019, Additional history exists TSH 01/12/2024 01/11/2023, 090 07/2022, 06/15/2022, Additional history exists MENINGOCOCCAL (MENACTRA/MENVEO) (3 - Risk 2-dose series) 06/17/2025 06/17/2020, 01/04/2020 DTaP,Tdap,and Td Vaccines (2 - Td or Tdap) 11/29/2025 11/30/2015 Lipid Panel 11/05/2027 11/04/2022, 110 04/2021, 04/23/2021, Additional history exists DXA Scan [...] as of this encounter Visit Diagnoses Diagnosis 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
--- OUTSIDE RECORDS SUMMARY | 2023-08-31 09:42 | External Medical Summary ---
Author Name Unknown Address Unknown Organization : Laboratory Report Ordering Provider Test Date Status JARETH SERRATO 05/18/2023 07:40:44 Final Observation Date Value Abnormality Reference (Units ) Status Copper 05/18/2023 07:40:44 160 70-175 (mc g/dL) Final This test was developed and its analytical performance
characteristics have been determined by [employer]
[place], [place]. It has
not been cleared or approved by the U.S. Food and Drug
Administration. This assay has been validated pursuant
to the CLIA regulations and is used for clinical
purposes.

Test Performed at:
[facility]
[address]
[place] [address]
Vladislav Todd M.D., Ph.D.,Director of Laboratories Performing Location
--- NOTE | 2023-08-31 12:08 | Communication Note ---
Date of Service: August 31, 2023 Neurology Service Plan of Care note - Telecart is down and patient wasn't evaluated in person however all imaging and the chart were reviewed. Kathy Esparza is a 73F with a PMH of stroke, HTN and pancreatic lesion who presented to the ED after several days of right peripheral vision loss. CT head showed a subacute left FORMS ANALYST territory stroke which was confirmed on MRI (there is a mild amount of expected surrounding edema) and CTA showed no significant stenosis or LVO. Echo was also unyeilding in the cause of her stroke. The mechanism of the stroke is unclear. If the lesion in her pancreas is determined to be cancer then this would be an indication for anticoagulation but until then it is antiplatelet only. -- continue ASA and statin -- outpatient cardiac monitoring -- would recommend anticoagulation if pancreatic lesion is determined to be cancer -- outpatient ophthalmology evaluation for visual field assessment -- recommend she refrain from driving -- goal normotension -- no further inhouse neurology work up, recommend outpatient follow up -- I will get on camera for a formal evaluation if the camera becomes available while she is admitted
--- NOTE | 2023-08-31 13:15 | Neurology Consultation ---
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 CT head showed a subacute left EXHAUST MACHINE OPERATOR territory stroke which was confirmed on MRI (there is a mild amount of expected surrounding edema) and CTA showed no significant stenosis or LVO. Echo was also unyeilding in the cause of her stroke. The mechanism of the stroke is unclear. She should have further cardiac monitoring as an outpatient Plan continue ASA and statin outpatient cardiac monitoring Telehealth Consultation Telehealth Information Telehealth Information: I performed this visit using a real-time telehealth connection between my location and the patients location ([facility]). After connecting through interactive tele-video, patient was identified by name and date of and/or wristband check.Patient (or authorized healthcare desk representative) was informed that this was a telemedicine visit and it was being conducted confidentially over secure lines. My office door was closed and no one else was present in the room with me.Patient (or authorized healthcare desk representative) provided consent to proceed with the visit, expressed an understanding of privacy and security of the telemedicine visit, and gave permission to have a hospital desk representative in the room in order to assist with the visit and to conduct portions of the visit, as needed. I informed the patient (or authorized healthcare desk representative) that I reviewed their record and presented the opportunity for them to ask any questions regarding the visit today. The patient agreed to participate. History of Present Illness Reason for Consultation: vision loss Attending Physician: Lenny Sommers MD Allergies Allergy/AdvReac Type Severity Reaction Status Date / Time diazepam [From Valium] AdvReac Severe Shakiness Verified 08/30/23 22:53 adhesive tape AdvReac Unknown Rash Verified 08/30/23 22:53 pseudoephedrine AdvReac Unknown Insomnia Verified 08/30/23 22:53 [From Sudafed] Home Medications Medication Instructions Recorded Confirmed Type levothyroxine 137 mcg tablet 137 mcg PO DAILY 08/30/23 08/30/23 History (Synthroid) meloxicam 7.5 mg tablet 7.5 mg PO DAILY PRN Severe Pain 08/30/23 08/30/23 History (Scale Score 7-10) omeprazole 20 mg capsule,delayed 20 mg PO DAILY PRN Heartburn 08/30/23 08/30/23 History release aspirin 81 mg tablet,delayed 81 mg PO DAILY #30 tabs 08/31/23 Rx release rosuvastatin 20 mg tablet 20 mg PO QAM #30 tabs 08/31/23 Rx Patient History Surgical History (Updated 01/15/22 @ 14:48 by JANNA Santana) History of pancreatectomy DISTAL PER PT IN 2019, INCLUDED THE SPLEEN PER PT. S/P gastric sleeve procedure SEP 2013 S/P partial hysterectomy 1993 S/P tonsillectomy and adenoidectomy S/P wisdom tooth extraction Family History (Updated 01/15/22 @ 14:53 by JANNA Santana) Aunt Colorectal cancer Uncle Colorectal cancer ALS (amyotrophic lateral sclerosis) Grandmother Myocardial infarction Father Pancreatic cancer Aunt Pancreatic cancer Grandfather (Paternal) Pancreatic cancer Grandmother (Paternal) Stroke Grandmother (Maternal) ALS (amyotrophic lateral sclerosis) Denies family history of Ovarian cancer Prostate cancer Breast cancer Hypertension Social History (Updated 01/15/22 @ 14:56 by JANNA Santana) Smoking Status: Never smoker Tobacco Type: Cigarettes Age Started Using Tobacco: 17; Age Quit Using Tobacco: 18; Cigarettes Per Day: A COUPLE A DAY; Second Hand Exposure: Yes; Do You Dip or Chew Tobacco: No; Hx Alcohol Use: Yes Alcohol type: beer and wine Alcohol Intake Frequency: 2-3 x/Week Hx Substance Use: No Preferred Language: Bhutanese Communication Ability: Effective Visual Impairment: No Limitations Hearing Ability: Use of Hearing Aid Bus And Sys Integration Senior Manager Required: No Beliefs That Will Affect Care: None marital status: Current Living Situation: Spouse Current Living Situation Comment: with current occupational status: retired Other Information That Helps Us Care for You: No Feels Safe at Home: Yes Safety Concerns: Feels Safe At This Time Childhood Exposure to Second-Hand Smoke: Yes Diet: other Diet Comment: [facility] DI[facility] Dental Care, Regularly: Yes Physical Activity Frequency: 3-4 Times per Week Seatbelt Use: always Sunscreen Use: Yes Assistive Devices: None Results & Data Vital Signs (Past 12 Hours) Vital Signs Temp Pulse Pulse Resp BP Pulse Ox O2 Del Method 08/31/23 11:43 Room Air 08/31/23 10:46 36.4 C L 62 17 123/77 98 Room Air 08/31/23 07:29 80 08/31/23 07:01 36.4 C L 58 L 17 125/78 95 Room Air 08/31/23 02:10 36.6 C 74 18 107/66 96 Room Air
--- NOTE | 2023-08-31 13:17 | Neurology Consultation ---
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 Echo was also unyeilding in the cause of her stroke. The mechanism of the stroke is unclear. She should have further cardiac monitoring as an outpatient Plan continue ASA and statin outpatient cardiac monitoring outpatient ophthalmology follow up, no driving until assessment goal normotension Telehealth Consultation Telehealth Information Telehealth Information: I performed this visit using a real-time telehealth connection between my location and the patients location ([facility]). After connecting through interactive tele-video, patient was identified by name and date of and/or wristband check.Patient (or authorized healthcare telephone services sales representative) was informed that this was a telemedicine visit and it was being conducted confidentially over secure lines. My office door was closed and no one else was present in the room with me.Patient (or authorized healthcare telephone services sales representative) provided consent to proceed with the visit, expressed an understanding of privacy and security of the telemedicine visit, and gave permission to have a hospital telephone services sales representative in the room in order to assist with the visit and to conduct portions of the visit, as needed. I informed the patient (or authorized healthcare telephone services sales representative) that I reviewed their record and presented the opportunity for them to ask any questions regarding the visit today. The patient agreed to participate. History of Present Illness Reason for Consultation: vision loss Attending Physician: Lenny Sommers MD History of Present Illness Kathy Esparza is a 73F with a PMH of HLD and hypothyroidism who presented with several days of right visual field loss. She reports that when she woke up on Wednesday morning she couldn't see the periphery in her right visual field. She called her eye doctor, she had just had a dilated exam the day before, who said if things don't get better to call back on Wednesday. When she was assessed on wednesday they saw she had a field cut and sent her to the ED. She denies any headache, fevers, chills, chest pain, SOB, palpitations weakness or numbness. She has never had a stroke before. She did have a lesion on her pancreas and had it resected. Currently she has no clear evidence of cancer. Allergies Allergy/AdvReac Type Severity Reaction Status Date / Time diazepam [From Valium] AdvReac Severe Shakiness Verified 08/30/23 22:53 adhesive tape AdvReac Unknown Rash Verified 08/30/23 22:53 pseudoephedrine AdvReac Unknown Insomnia Verified 08/30/23 22:53 [From Sudafed] Home Medications Medication Instructions Recorded Confirmed Type levothyroxine 137 mcg tablet 137 mcg PO DAILY 08/30/23 08/30/23 History (Synthroid) meloxicam 7.5 mg tablet 7.5 mg PO DAILY PRN Severe Pain 08/30/23 08/30/23 History (Scale Score 7-10) omeprazole 20 mg capsule,delayed 20 mg PO DAILY PRN Heartburn 08/30/23 08/30/23 History release aspirin 81 mg tablet,delayed 81 mg PO DAILY #30 tabs 08/31/23 Rx release rosuvastatin 20 mg tablet 20 mg PO QAM #30 tabs 08/31/23 Rx Patient History Surgical History (Updated 01/15/22 @ 14:48 by JANNA Santana) History of pancreatectomy DISTAL PER PT IN 2019, INCLUDED THE SPLEEN PER PT. S/P gastric sleeve procedure SEP 2013 S/P partial hysterectomy 1993 S/P tonsillectomy and adenoidectomy S/P wisdom tooth extraction Family History (Updated 01/15/22 @ 14:53 by JANNA Santana) Aunt Colorectal cancer Uncle Colorectal cancer ALS (amyotrophic lateral sclerosis) Grandmother Myocardial infarction Father Pancreatic cancer Aunt Pancreatic cancer Grandfather (Paternal) Pancreatic cancer Grandmother (Paternal) Stroke Grandmother (Maternal) ALS (amyotrophic lateral sclerosis) Denies family history of Ovarian cancer Prostate cancer Breast cancer Hypertension Social History (Updated 01/15/22 @ 14:56 by JANNA Santana) Smoking Status: Never smoker Tobacco Type: Cigarettes Age Started Using Tobacco: 17; Age Quit Using Tobacco: 18; Cigarettes Per Day: A COUPLE A DAY; Second Hand Exposure: Yes; Do You Dip or Chew Tobacco: No; Hx Alcohol Use: Yes Alcohol type: beer and wine Alcohol Intake Frequency: 2-3 x/Week Hx Substance Use: No Preferred Language: Greenlandic Communication Ability: Effective Visual Impairment: No Limitations Hearing Ability: Use of Hearing Aid Stacker And Sorter Operator Required: No Beliefs That Will Affect Care: None marital status: Current Living Situation: Spouse Current Living Situation Comment: with current occupational status: retired Other Information That Helps Us Care for You: No Feels Safe at Home: Yes Safety Concerns: Feels Safe At This Time Childhood Exposure to Second-Hand Smoke: Yes Diet: other Diet Comment: MEDITTERANIAN DIET Dental Care, Regularly: Yes Physical Activity Frequency: 3-4 Times per Week Seatbelt Use: always Sunscreen Use: Yes Assistive Devices: None Review of Systems See HPI Physical Exam Mental Status:alert, oriented to time, place, person, normal recent memory, normal remote memory, normal attention span, normal concentration, normal language, and normal fund of knowledge Cranial Nerves: CN 2 - right homonomous hemiopsia CN 3, 4, 6 - extra-ocular movements intact and no nystagmus CN 5 - facial sensation intact CN 7 - no facial asymmetry CN 8 - intact hearing CN 9, 10 - palate symmetric, normal gag CN 11 - good shoulder shrug CN 12 - tongue midline MOTOR: Strength was at least antigravity throughout, Pronator drift was absent, and There were no abnormal movements SENSATION: intact and symmetric to pinprick, light touch, vibration and joint position GAIT: stable, no ataxia, and can perform tandem walking COORDINATION: no ataxia with finger to nose testing and heel to spivey testing REFLEXES: cannot assess over telemedicine Results & Data Vital Signs (Past 12 Hours) Vital Signs Temp Pulse Pulse Resp BP Pulse Ox O2 Del Method 08/31/23 11:43 Room Air 08/31/23 10:46 36.4 C L 62 17 123/77 98 Room Air 08/31/23 07:29 80 08/31/23 07:01 36.4 C L 58 L 17 125/78 95 Room Air 08/31/23 02:10 36.6 C 74 18 107/66 96 Room Air Laboratory Results Abnormal Lab Results 08/30/23 08/31/23 19:47 05:20 WBC 9.29 7.89 RBC 4.61 4.31 Hgb 14.6 13.6 Hct 42.6 40.0 MCV 92.4 92.8 MCH 31.7 31.6 MCHC 34.3 34.0 RDW Std Deviation 47.2 H 47.2 H RDW Coeff of Sheila 13.8 13.7 Plt Count 380 352 MPV 10.4 10.5 Immature Gran % (Auto) 0.2 0.3 Neut % (Auto) 41.1 39.7 Lymph % (Auto) 42.9 41.2 Will % (Auto) 12.2 13.6 Eos % (Auto) 2.7 4.6 Baso % (Auto) 0.9 0.6 Neut # (Auto) 3.82 3.14 Lymph # (Auto) 3.99 H 3.25 Will # (Auto) 1.13 H 1.07 H Eos # (Auto) 0.25 0.36 Baso # (Auto) 0.08 0.05 Immature Gran # (Auto) 0.02 0.02 Sodium 140 139 Potassium 4.2 4.2 Chloride 106 109 H Carbon Dioxide 28 27 Anion Gap 6 3 BUN 20 19 Creatinine 0.55 L 0.52 L Est Cr Clr Drug Dosing 90.0 95.8 Est GFR ( Amer) 106.3 108.3 Est GFR (Non-Af Amer) 91.8 93.5 BUN/Creatinine Ratio 36.4 H 36.5 H Glucose 134 H 99 Estimat Average Glucose 114 Hemoglobin A1c 5.6 Calcium 10.0 8.9 Phosphorus 3.6 Magnesium 1.8 Total Bilirubin 0.4 AST 25 ALT 27 Alkaline Phosphatase 86 Total Protein 7.6 Albumin 4.4 Globulin 3.2 Albumin/Globulin Ratio 1.4 Triglycerides 81 Cholesterol 209 H LDL Cholesterol, Calc 129 VLDL Cholesterol, Calc 16 HDL Cholesterol 64 Cholesterol/HDL Ratio 3.3 TSH 2.600 Diagnostic Findings Brain MRI 08/31/23 00:29 Exam(s): MRI HEAD W/WO Contrast IV Amt: 8.5cc gadavist EXAM: MR Head Without and With Intravenous Contrast CLINICAL HISTORY: Reason for exam: cva. TECHNIQUE: Magnetic resonance images of the head/brain without and with intravenous contrast in multiple planes. CONTRAST: Patient received 8.5cc gadavist of IV contrast COMPARISON: Comparison made to prior head CT from same day. FINDINGS: Brain: There is an acute ischemic injury of the left occipital lobe with extensive vasogenic edema without evidence of hemorrhagic transformation. There is a remote ischemic injury of the right parietal lobe with encephalomalacia and gliosis. Mild nonspecific white matter changes. The flow voids at the base of the brain are intact. No mass. No hemorrhage. The dural venous sinuses are patent. There is a small developmental venous anomaly in the left parietal lobe. Ventricles: Unremarkable. No ventriculomegaly. Bones/joints: Hyperostosis frontalis interna. No acute fracture. Sinuses: Unremarkable as visualized. No acute sinusitis. Mastoid air cells: Unremarkable as visualized. No mastoid effusion. Orbits: Unremarkable as visualized. IMPRESSION: Acute ischemic injury of the left occipital lobe without evidence of hemorrhagic transformation. Electronically signed by: Clair Norman MD 08/31/23 03:26 AM
[2023-08-31] MEDS ORDERED: STROKE PATIENT DISCHARGE STA (13:50)
--- NOTE | 2023-08-31 13:55 | Pharmacy Report ---
- Date of Service August 31, 2023 - Pharmacy CVA/TIA Medication Review Medications to Prevent Stroke handout has been added to the patients discharge packet. Antiplatelet(s) * aspirin 81 mg PO daily Cholesterol * High intensity statin: rosuvastatin 20 mg daily DVT Prophylaxis * SCD thigh Therapeutic Anticoagulation * No history of Afib/Aflutter noted Type 2 Diabetes * Patient does not have T2DM
--- NOTE | 2023-08-31 13:58 | Discharge Summary ---
Date of Service August 31, 2023 Admission HPI Per Admitting Provider 73-year-old female with past medical history significant for mixed hyperlipidemia, IPMN, prediabetes, postablative hypothyroidism, GERD, s/p gastric bypass, serrated polyposis syndrome, polymyalgia rheumatica, osteoarth ritis, history of splenectomy presents with right eye peripheral vision loss since last Wednesday and CAT scan showing possible stroke. Patient saw eye doctor on Wednesday for her cataracts and there is a plan for surgery in November. She was given eyedrops. On Wednesday morning she woke up and she found could not see on the periphery of the right eye. Also later one spot in the left eye medial side could not see.. As was not getting better she went to eye doctor today and was examined and was told possible central cause and advised to go to her doctor as soon as possible.Family doctor called her and told her to come to the ER. She thinks right eye peripheral vision is slightly better but Not completely resolved. Denies any headache. No dizziness. Has some runny nose from allergies. No sore throat or cough. No fevers. No headaches. No difficulty swallowing. No chest pain or shortness of breath. No nausea , no abdominal pain. Normal bowel and bladder movements. No blood in the stools. No hematuria. She states in the summer she develops ankle swellings. Currently resting comfortably and hemodynamically stable. Past medical history. As mentioned above past surgical history. Bilateral carpal tunnel surgery. Gastric revision for obesity. Laparoscopic splenectomy. Ligation of oviduct. Partial hysterectomy. Partial removal of pancreas. Tonsillectomy. Social history. . Former smoker. Alcohol occasional. No drug use. Family history. Paternal grandfather had stomach cancer. Paternal aunt had colon cancer. Paternal uncle had colon cancer. Paternal aunt had pancreatic cancer. Father had pancreatic cancer. Mother had pulmonary embolism likely from broken hip. Son has cyclic vomiting syndrome. Admission Exam Per Admitting Provider General- Not in distress Head- atraumatic Eyes- PERRL, EOMI, right eye vision loss on lateral aspect. ENT- oropharynx clear Neck- supple, no JVD. Lungs- clear to auscultation no wheezing or crackles. Heart- regular rate and rhythm; no murmur, no gallop. Abdomen- normal bowel sounds, soft, nontender, no distension. Extremities- trace pretibial edema, no erythema seen Neuro- alert, oriented PERRL, EOMI; no facial palsy; no dysarthria; moves extremities. Principal Diagnosis Acute CVA Discharge Exam General- WD/WN F in NAD Head- NC/AT Eyes- PERRL, EOMI, right eye vision loss on lateral aspect. Neck- supple, no JVD. Lungs- clear to auscultation no wheezing or crackles. Heart- regular rate and rhythm; no murmur Abdomen- normal bowel sounds, soft, nontender, no distension. Extremities- trace pretibial edema, no erythema seen Neuro- alert, oriented PERRL, EOMI; no facial palsy; no dysarthria; moves extremities. Discharge Data Allergies Allergy/AdvReac Type Severity Reaction Status Date / Time diazepam [From Valium] AdvReac Severe Shakiness Verified 08/30/23 22:53 adhesive tape AdvReac Unknown Rash Verified 08/30/23 22:53 pseudoephedrine AdvReac Unknown Insomnia Verified 08/30/23 22:53 [From Sudafed] Consultations 08/30/23 21:45 ED Decision to Admit Stat 08/31/23 08:00 Consult Neurology Routine Ordered Studies 08/30/23 20:42 CT head/brain wo con Stat FINDINGS: Brain: No intracranial hemorrhage. Asymmetric hypodense appearance of the posterior medial left occipital lobe with loss of the chaney-white matter differentiation. No significant mass-effect. Ventricles: Unremarkable. No ventriculomegaly. Bones/joints: Unremarkable. No acute fracture. Soft tissues: Unremarkable. Sinuses: Unremarkable as visualized. No acute sinusitis. Mastoid air cells: Unremarkable as visualized. No mastoid effusion. IMPRESSION: Asymmetric hypodense appearance of the posterior medial left occipital lobe with loss of the chaney-white matter differentiation. Findings are consistent with evolving ischemic changes in this region. Recommend MR with diffusion for further analysis, as clinically indicated. CTA head w con [CT angio head w con] Stat IMPRESSION: Negative intracranial CTA examination. CTA neck with con [CT angio neck with con] Stat IMPRESSION: 1. Negative cervical CTA examination. 2. Subcentimeter grouped irregular and somewhat nodular changes noted involving the medial aspect of the right upper lobe lung apex. This may represent subsegmental atelectasis. Consider nonemergent diagnostic evaluation, when clinically indicated. 08/31/23 00:29 MR brain wo/w con Urgent FINDINGS: Brain: There is an acute ischemic injury of the left occipital lobe with extensive vasogenic edema without evidence of hemorrhagic transformation. There is a remote ischemic injury of the right parietal lobe with encephalomalacia and gliosis. Mild nonspecific white matter changes. The flow voids at the base of the brain are intact. No mass. No hemorrhage. The dural venous sinuses are patent. There is a small developmental venous anomaly in the left parietal lobe. Ventricles: Unremarkable. No ventriculomegaly. Bones/joints: Hyperostosis frontalis interna. No acute fracture. Sinuses: Unremarkable as visualized. No acute sinusitis. Mastoid air cells: Unremarkable as visualized. No mastoid effusion. Orbits: Unremarkable as visualized. IMPRESSION: Acute ischemic injury of the left occipital lobe without evidence of hemorrhagic transformation. Hospital Course (1) CVA (cerebral vascular accident): 73 yo F with mixed hyperlipidemia, IPMN, prediabetes, postablative hypothyroidism, GERD, s/p gastric bypass, serrated polyposis syndrome, polymyalgia rheumatica, osteoarthritis, history of splenectomy presents with right eye peripheral vision loss since last Wednesday and CAT scan showing possible stroke. Patient saw eye doctor on Wednesday for her cataracts and there is a plan for surgery in November. She was given eyedrops. On Wednesday morning she woke up and she found could not see on the periphery of the right eye. Also later one spot in the left eye medial side could not see.. As was not getting better she went to eye doctor today and was examined and was told possible central cause and advised to go to her doctor as soon as possible.Family doctor called her and told her to come to the ER. She thinks right eye peripheral vision is slightly better but Not completely resolved. Denies any headache. No dizziness. Has some runny nose from allergies. No sore throat or cough. No fevers. No headaches. No difficulty swallowing. No chest pain or shortness of breath. No nausea , no abdominal pain. Normal bowel and bladder movements. No blood in the stools. No hematuria. She states in the summer she develops ankle swellings. Currently resting comfortably and hemodynamically stable. Acute CVA comes with peripheral vision loss in the right eye lateral aspect since last Wednesday morning and also one spot in medial aspect of the left eye. CAT head scan showing hypodense appearance of the posterior medial left occipital lobe, findings consistent with evolving issue change in this region and MRI scan is recommended CTA head and neck unremarkable start aspirin. High-dose statin. Stroke protocol. Neurochecks. Follow MRI head and echo MRI brain - There is an acute ischemic injury of the left occipital lobe with extensive vasogenic edema without evidence of hemorrhagic transformation. Echo -LVEF 55 to 60%. Borderline concentric LVH. mild mitral regurg. mild tricuspid regurg. estimated systolic pulmonary pressure is 38 mmHg. ascending aorta is mildly enlarged, 4 cm Speech evaluation PT OT evaluation. Telemetry monitoring. Neurology consulted and discussed with - continue ASA and statin - outpatient cardiac monitoring - outpatient ophthalmology follow up, no driving until assessment - goal normotension Hypothyroidism on Synthroid current TSH 2.6 Prediabetes current HbA1c level 5.6% History of gastric bypass surgery GERD on omeprazole as needed Hyperlipidemia current LDL 129 History of splenectomy. Abnormal lung image on CT (CTA neck obtained for stroke evaluation) - Subcentimeter grouped irregular and somewhat nodular changes noted involving the medial aspect of the right upper lobe lung apex. This may represent subsegmental atelectasis. Consider nonemergent diagnostic evaluation, when clinically indicated. Pt currently does not have any cough, clear lung sounds on phys. exam, no fever, normal WBC Follow up as outpt By CMS guidelines, a determination that the admission or continued stay is not medically necessary has been made by a member of the UR committee and a physician for this hospital stay, therefore a Code 44 will be completed and the Inpatient admission will be changed to outpatient. MD Matthieu Total Time Total Time Spent Total Time Spent (In Minutes): 40 Discharge Plan Discharge Items Patient Disposition: Home - Self-Care Reason For Visit: CVA Discharge Diagnosis: Acute CVA Activity: Per Instructions section Non-emergency contact: Primary Care Provider, Neurologist and Senior Integration Architect Call non-emergency contact if: you have any medication questions and your symptoms worsen Follow-up/Referrals: Gemini Dorantes MD [Primary Care Provider] - (Date & Time 09/06/2023 2:40 PM Provider Gemini Dorantes MD Department Family Practice [facility] ) Naty Raza PA-C [Physician Cushion Padder] - (Date & Time 09/14/2023 11:20 AM Provider Naty Raza PA-C Department Neurology [facility] ) Diet: Heart Healthy Addtl Attending Provider Instructions: Follow up with your primary care doctor , neurologist and grizzly worker. Continue taking aspirin and statin. You will also need a heart monitor after discharge - ziopatch to monitor your heart rhythm. Given your vision changes, it is recommended that you do not drive until re-a ssessed by your grizzly worker. Pending Studies at Discharge: No Stand-Alone Forms: [facility], Smoking Cessation, Medications to Prevent Stroke Medications and DC Order Prescriptions: New aspirin 81 mg Tablet,Delayed Release (Dr/Ec) 81 mg PO DAILY Qty: 30 0RF rosuvastatin 20 mg Tablet 20 mg PO QAM Qty: 30 0RF Continued levothyroxine [Synthroid] 137 mcg tablet 137 mcg PO DAILY meloxicam 7.5 mg tablet 7.5 mg PO DAILY PRN (Reason: Severe Pain (Scale Score 7-10)) omeprazole 20 mg Capsule,Delayed Release(Dr/Ec) 20 mg PO DAILY PRN (Reason: Heartburn) Discharge Orders: Discharge Order (Routine); Ordered 08/31/23 Ordered By: Lenny Sommers Admission Data Admit Date/Time: 08/30/23 22:43 Attending Provider: Lenny Sommers Admit Provider: Thom Weir Primary Care Provider: Gemini Dorantes Other Providers: Thom Weir; Naty Raza; Srinivasan Ocasio; Naty Jin; Gus Gtz; Stef Logan; Huey Montoya; Aki Santiago; Elida Zurita; Alf El; Sha Jackson; Ranjan Jones; Clark Cunningham; Katie Castano; Ria Laguerre; Aki Fajardo
--- NOTE | 2023-09-01 06:30 | Electrocardiogram Report ---
Test Reason : Blood Pressure : / mmHG Vent. Rate : 073 BPM Atrial Rate : 073 BPM P-R Int : 164 ms QRS Dur : 070 ms QT Int : 390 ms P-R-T Axes : 081 020 049 degrees QTc Int : 429 ms Normal sinus rhythm Normal ECG No previous ECGs available Confirmed by Sharan Wallace ([id number]) on 09/01/2023 6:29:47 AM Referred By: Confirmed By:Sharan Wallace
--- NOTE | 2023-09-03 08:48 | Pharmacy Report ---
Pharmacist Stroke Counseling - Date of Service September 03, 2023 - Scope: Pharmacy has been consulted to provide medication discharge counseling for this patient admitted with ischemic stroke as per the Pharmacist Discharge Counseling for Stroke Patients Protocol. - Medications on Discharge: Home Medications Medication Instructions Recorded Confirmed levothyroxine 137 mcg tablet 137 mcg PO DAILY 08/30/23 08/30/23 (Synthroid) meloxicam 7.5 mg tablet 7.5 mg PO DAILY PRN Severe Pain 08/30/23 08/30/23 (Scale Score 7-10) omeprazole 20 mg capsule,delayed 20 mg PO DAILY PRN Heartburn 08/30/23 08/30/23 release New Rx's Medication Instructions Recorded aspirin 81 mg tablet,delayed 81 mg PO DAILY #30 tabs 08/31/23 release rosuvastatin 20 mg tablet 20 mg PO QAM #30 tabs 08/31/23 - Action: The above medications, specifically ones for stroke treatment/prophylaxis, have been reviewed in detail with the patient and/or patient wholesale representative(s) prior to discharge. This includes indication, common adverse reactions, drug interactions, and medication administration. Medication counseling has been employed using the teach-back method to ensure understanding. - Outcome: The patient and/or patient wholesale representative(s) have demonstrated understanding of the medications. Additional comments: * Patient confirmed that new medication were picked up from pharmacy * Patient reports that she has a history of poorly tolerating statins and that aspirin previously upset her stomach. * She is currently taking the rosuvastatin as prescribed, but if she starts to have previously observed side effects (pain/trouble sleeping/dizziness) then she will discuss with her PCP to see if she can take less often. * I reinforced that enteric-coated aspirin would likely be best, which is what she picked up from pharmacy, and to make sure that she takes with food * No further questions/concerns from patient Thank you for allowing pharmacy to be involved in the care of this patient. Please call [phone] with any additional questions
== END 2023-08-31 15:12 | disposition home or self-care (01) ==
LOC: ED 19:33 → 4W 22:43 → INTOOBSV 22:43 → 4W 23:19